=== PATIENT | female | born 1975 | race Caucasian/White ===

== ENCOUNTER 2019-12-02 10:24 | Outpatient (REF) | payer MEDICAID, SELFPAY ==
--- NOTE | 2019-12-02 10:00 | PAPFT_PTH ---
PATIENT: Bri Conte LOC: [facility] U#:[id number] AGE/SX: 44/F ROOM: RE12/02/[address]: GALE Solitario : 1975 BED: DIS: 12/02/2019 SPEC #: [id number] RECD: 12/02/19 13:08 STATUS: GABRIEL REQ #: [id number] DIPESH: 12/02/19 10:[address]: Daisy Johnson DEPT: [facility] Cytology RECD BY: Tammie Martinez ENTERED: 12/02/19 13:09 SP TYPE: PAPFT OTHR DR: Horacio Wilkins MD Tissues: 1 - CX/ENDOCX FOR PAP SMEARS Procedures: PAP THIN PREP/UVM Screening HPV DNA PROBE Comments: [id number]
[2019-12-06 14:23] LABS: Chlamydia Result Negative (Negative); GC Result Negative (Negative)
== END 2019-12-02 10:44 ==
LOC: LBN 10:24
PROVIDERS: PCP Family Medicine; Visit Provider Nurse Practitioner Family
DX: Z12.4 Encounter for screening for malignant neoplasm of cervix (principal); Z11.51 Encounter for screening for human papillomavirus (HPV); Z97.5 Presence of (intrauterine) contraceptive device
CPT/HCPCS: 87491; 87591; 88142; 87624

== ENCOUNTER 2019-12-22 01:07 | Outpatient (CLI) | payer MEDICAID, SELFPAY ==
--- NOTE | 2019-12-22 12:41 | DI.MAMMO_ITS ---
EXAM: MAMMO SCREENING CLINICAL HISTORY: screening TECHNIQUE: Mammograms were interpreted according to the usual protocol including computer analysis w [employer]ches CAD system, tomosynthesis and C-view imaging. COMPARISON: FINDINGS: The breasts are heterogeneously dense. No dominant mass or clumped microcalcification is identified in either breast. Current examination is compared with previous examinations including September 2015 and there has been no gross interval change in appearance comparison previous studies. There are scatte red microcalcifications seen in both breasts, unchanged. IMPRESSION: No specific evidence of malignancy at this time. Routine screening are suggested at yearly interval s in this age group according to the ACS ACR guidelines. BI-RADS Cat 1 - Negative Breast Density - Category C - Heterogeneously dense
== END 2019-12-22 01:27 ==
PROVIDERS: PCP Family Medicine; Visit Provider Nurse Practitioner Family
DX: Z12.31 Encounter for screening mammogram for malignant neoplasm of breast (principal); R92.2 Inconclusive mammogram
CPT/HCPCS: 77063; 77067

== ENCOUNTER 2020-02-01 01:53 | Outpatient (CLI) | payer MEDICAID, SELFPAY ==
[2020-02-01 09:02] LABS: Abs Immature Grans 0.01 10^3/uL (0.0-0.06); Absolute Basophil Count 0.05 10^3/uL (0.0-0.2); Absolute Eosinophil Count 0.39 10^3/uL (0.0-0.7); Absolute Lymphocyte Count 1.53 10^3/uL (1.2-3.4); Absolute Monocyte Count 0.35 10^3/uL (0.1-0.8); Absolute Neutrophil Count 3.08 10^3/uL (1.2-6.7); Basophils % 0.9; Eosinophils % 7.2; HCT 44.7 % (36.0-46.0); HGB 14.9 g/dL (11.2-15.7); Immature Grans % 0.2; Lymphocytes % 28.3; MCH 30.3 pg (27.0-33.0); MCHC 33.3 % (32.0-36.0); MCV 90.9 fL (80-95); MPV 9.6 fL (8.0-11.0); Monocytes % 6.5; Neutrophils % 56.9; Nucleated RBC 0 %; Platelet Count 315 10^3/uL (130-400); RBC 4.92 10^6/uL (3.93-5.22); RDW 11.7 % (11.7-14.6); RDW-SD 38.9 fL; WBC 5.41 10^3/uL (4.4-10.8)
[2020-02-01 10:14] LABS: ALT 17 U/L (14-59); AST 11 U/L (15-37); Albumin 4.3 g/dL (3.4-5.0); Alkaline Phosphatase 71 U/L (46-116); Anion Gap 6.3 mmol/L (3-11); BUN 8 mg/dL (7-18); Bilirubin, Total 0.3 mg/dL (0.2-1.0); CO2 28.7 mmol/L (21.0-32.0); CREATININE 0.62 mg/dL (0.55-1.02); Calcium 8.9 mg/dL (8.5-10.1); Calculated LDL 136 mg/dL (<100); Chloride 102 mmol/L (98-107); Cholesterol 202 mg/dL (<200); Glucose 96 mg/dL (74-106); HDL Cholesterol 47 mg/dL (40-60); Potassium 4.4 mmol/L (3.5-5.1); Sodium 137 mmol/L (136-145); TSH 2.33 uIU/mL (0.36-3.74); Total Protein 7.2 g/dL (6.4-8.2); Triglyceride 97 mg/dL (<150); Vitamin B12 568 pg/mL (193-986)
[2020-02-01 10:29] LABS: ESR 3 mm/hr (0-20)
[2020-02-17 10:42] LABS: ANA Interpretation Negative (Negative)
== END 2020-02-01 02:13 ==
PROVIDERS: PCP Family Medicine; Visit Provider Family Medicine
DX: R43.8 Other disturbances of smell and taste (principal); K21.00 Gastro-esophageal reflux disease with esophagitis, without bleeding; Z00.00 Encounter for general adult medical examination without abnormal findings; R20.8 Other disturbances of skin sensation; Z82.49 Family history of ischemic heart disease and other diseases of the circulatory system
CPT/HCPCS: 36415; 80053; 80061; 85652; 82607; 84443; 85025; 86038

== ENCOUNTER 2022-01-25 02:01 | Outpatient (CLI) | payer MEDICAID, SELFPAY ==
--- OUTSIDE RECORDS SUMMARY | 2022-01-25 02:03 | XMS_ITS | Clinical Summary ---
:1975 Author Organization [facility] [place] [address] Care Team Providers Name Role Phone Alyssa Mathew MD Primary Care Provider Allergies Active Allergy Reactions Severity Noted Date Comments Animal Dander 07/16/2021 Unclassified Drug 07/16/2021 Summer too lens Medications Medication Sig Dispensed Refills Start Date End Date Status cetirizine (ZyrTEC) 10 Take 10 mg by 0 Active mg Tablet mouth daily. pantoprazole EC Take 40 mg by 0 Active (Protonix) 40 mg Tablet, mouth daily. Delayed Release (E.C.) Immunizations Name Administration Dates Next Due Influenza Vaccine, Whole 12/27/2008 Social History Tobacco Use Types Packs/Day Years Used Date Never Smoker Smokeless Tobacco: Never Used Alcohol Use Standard Drinks/Week Comments Not Currently 0 (1 standard drink = 0.6 oz pure alcoho l) Sex Assigned at Date Recorded Not on file Last Filed Vital Signs Vital Sign Reading Time Taken Comments Blood Pressure 113/57 07/16/2021 3:40 PM EDT Pulse 67 07/16/2021 2:18 PM EDT Temperature 36.7 ??C (98.1 ??F) 07/16/2021 2:18 PM EDT Respiratory Rate 18 07/16/2021 3:40 PM EDT Oxygen Saturation 100% 07/16/2021 3:40 PM EDT Inhaled Oxygen Concentration - - Weight 53.1 kg (117 lb) 07/16/2021 2:18 PM EDT Height 157.5 cm (5' 2) 07/16/2021 2:18 PM EDT Body Mass Index 21.4 07/16/2021 2:18 PM EDT Plan of Treatment Health Maintenance Due Date Last Done Comments Covid-19 Vaccine (#1) 1975 HIV screen 1991 Hepatitis C Screening 1991 Tdap adult 1992 Tetanus vaccine 1992 HPV test 2003 PAP Smear 2003 Breast Cancer Share Decision Needed 2013 Colonoscopy 2018 Influenza (Flu) vaccine (1 of 1 - Influenza standard 12/06/2021 12/27/2008 series) Insurance Payer Benefit Plan / Subscriber ID Effective Dates Phone Addre ss Type [place] [id number] 2021-Kay [phone] [address] PRIMARY CARE t 7 [facility] [id number] Care Teams Manager Risk Relationship Specialty Start Date End Date Alyssa Mathew MD PCP - General Family Medicine 07/06/[address] [place] [address]
--- OUTSIDE RECORDS SUMMARY | 2022-01-25 02:03 | XMS_ITS | Encounter Summary ---
:1975 Author Organization [facility] [place] [address] Care Team Providers Name Role Phone Avelino ODELL MD, Ananda Bright Primary Care Provider [phone] Encounter Details Date Type Department Care Team Description 06/28/2021 Telephone Gastroenterology at [facility] [place] [address] Social History Tobacco Use Types Packs/Day Years Used Date Never Assessed Sex Assigned at Date Recorded Not on file documented as of this encounter Miscellaneous Notes Telephone Encounter - SidLeifcandi Romero - 06/28/2021 3:33 PM EDT Bri Conte [id number] Diagnosis/Indication: duodenal submucosal lesion 1. Have you ever had a/an Upper EUS before? No If yes, did you have any problems with the procedure? No What type of sedation was used: None 2. Do you take any blood thinners or have you been diagnosed with a bleeding disorder that increasesyour risk of bleeding with procedures? No 3. Do you have a Pacemaker or Defibrillator device? No 4. Are you a diabetic? No 5. Do you have any Allergies to Eggs, Latex or Medications? No 6. Do you take any Oral Iron Supplements (Including multi-vitamins)? No 7. Do you have a history of three or more abdominal surgeries? No 8. Have you had a problem with sedation or anesthesia? No 9. Do you use a c-pap machine or oxygen tank? Neither 10. Do you take prescription narcotic pain medications, including suboxone or methodone? No 11. Do you have a preference regarding the gender of your provider? No Preference 12. Is there any other information you would like to us to note for the provider and nursing team who will perform your case? No 13. Say to patient: You must have a responsible democrat who will drive you to your procedure, stay on campus for the entire duration of your procedure, and drive you home from your procedure? *Please Verify the height and weight, and adjust if height and/or weight have changed* There is no height or weight on file to calculate BMI. *Delete if not needed* Height: 5'2 Weight: 130 BMI: Age:46 y.o. documented in this encounter Plan of Treatment Not on filedocumented as of this encounter Visit Diagnoses Not on filedocumented in this encounter Care Teams Contract Administrator Relationship Specialty Start Date End Date Ananda You III, MD PCP - General 02/27/10 07/05/[address] [address] documented as of this encounter
--- OUTSIDE RECORDS SUMMARY | 2022-01-25 02:03 | XMS_ITS | Encounter Summary ---
:1975 Author Organization [facility] [address] Care Team Providers Name Role Phone Avelino ODELL MD, Ananda Bright Primary Care Provider [phone] Reason for Referral Consultation (Urgent) - Closed Specialty Diagnoses / Procedures Referred By Contact Refer red To Contact Gastroenterology Diagnoses Subepithelial lesion of duodenum EGD and EUS for duodenal submucosal lesion within 3-4 weeks with anesthesia with advanced endoscopist. Param Delgado, [facility] 4 t MD [facility] [address] [address] [place] [address] Referral ID Status Reason Start Date Expiration Date Visits V isits Requested Authorized [id number] Closed Consult, 06/25/2021 06/25/2022 1 1 Test & Treat Encounter Details Date Type Department Care Team Description 06/25/2021 Transcribe Orders eDH Incoming Nadeem Delgado ial lesion Referrals Param Mei MD of duodenum [phone] [address] Social History Tobacco Use Types Packs/Day Years Used Date Never Assessed Sex Assigned at Date Recorded Not on file documented as of this encounter Plan of Treatment Scheduled Referrals Name Type Priority Associated Diagnoses Order S chedule Referral to Outpatient Routine Subepithelial lesion Ordered : Gastroenterology Referral of duodenum 06/25/2021 documented as of this encounter Visit Diagnoses Diagnosis Subepithelial lesion of duodenum documented in this encounter Care Teams Laundry Press Operator Relationship Specialty Start Date End Date Ananda You III, MD PCP - General 02/27/10 07/05/[address] [place] [address] documented as of this encounter
--- OUTSIDE RECORDS SUMMARY | 2022-01-25 02:03 | XMS_ITS | Encounter Summary ---
:1975 Author Organization [facility] [place] [address] Care Team Providers Name Role Phone Alyssa Mathew MD Primary Care Provider Encounter Details Date Type Department Care Team Description 07/16/2021 Hospital Encounter Gastro[place]ology [place] [facility] Wood Almodovar, [facility] [place] [address] [facility] [phone] [place] [address] Social History Tobacco Use Types Packs/Day Years Used Date Never Smoker Smokeless Tobacco: Never Used Alcohol Use Standard Drinks/Week Comments Not Currently 0 (1 standard drink = 0.6 oz pure alcoho l) Sex Assigned at Date Recorded Not on file documented as of this encounter Last Filed Vital Signs Vital Sign Reading [...] Mass Index 21.4 07/16/2021 2:18 PM EDT documented in this encounter Discharge Instructions Discharge Quinn Galvan K, RN - 07/16/2021 3:14 PM EDT Upper GI Endoscopy: What to Expect at Home Your Recovery You will be able to go home after your doctor or nurse checks to make sure you are not having any problems. You may have to stay overnight if you had treatment during the test. You may have a sore throat for a day or two after the test. This care sheet gives you a general idea about what to expect after the test. How can you care for yourself at home? Activity Rest when you feel tired. You can do your normal activities when it feels okay to do so. Diet Follow your doctor's directions for eating. Unless your doctor has told you not to, drink plenty of fluids. This helps to replace the fluids that were lost during the prep. Do not drink alcohol. Medicines Your doctor will tell you if and when you can restart your medicines. He or she will also give you instructions about taking any new medicines. If you take blood thinners, such as warfarin (Coumadin), clopidogrel (Plavix), or aspirin, be sure to talk to your doctor. He or she will tell you if and when to start taking those medicines again. Make sure that you understand exactly what your doctor wants you to do. If polyps were removed or a biopsy was done during the test, your doctor may tell you not to take aspirin or other anti-inflammatory medicines for a few days. These include ibuprofen (Advil, Motrin) and naproxen (Aleve). If you have a sore throat the day after the procedure, use an qnls-vgm-kyxolyj spray to numb your throat. Sucking on throat lozenges and gargling with warm salt water may also help relieve your symptoms. Other instructions For your safety, do not drive or operate machinery until the medicine wears off and you can think clearly. Your doctor may tell you not to drive or operate machinery until the day after your test. Do not sign legal documents or make major decisions until the medicine wears off and you can think clearly. The anesthesia can make it hard for you to fully understand what you are agreeing to. Additional Information for Sedation Patients For patients who received sedation: You may have received medications before and/or during your procedure which effects your judgement and reaction time. Do not drive, operate machinery, drink alcoholic beverages or make important decisions for 24 hours. Be careful on stairs as you may be unsteady on your feet. You may eat a regular diet as tolerated. Do not smoke if you are alone. IV site: Slight redness or tenderness is normal, you can use a warm compress if you would like. If tenderness and/or redness increase or if foul drainage occurs, please contact your Doctor. Please call [phone] before 8pm Mon-Fri with problems, questions or concerns. If you call after 8pm or on weekends, call the Hospital at [phone] and ask to speak to the Linter Saw Sharpener department chairperson and the back digger operator will contact that person for you. When should you call for help? Call [phone] anytime you think you may need emergency care. For example, call if: You passed out (lost consciousness). You pass maroon or bloody stools. You have trouble breathing. Call your doctor now or seek immediate medical care if: You have pain that does not get better after you take pain medicine. You are sick to your stomach or cannot drink fluids. You have new or worse belly pain. You have blood in your stools. You have a fever. You cannot pass stools or gas. Watch closely for changes in your health, and be sure to contact your doctor if you have any problems. Where can you learn more? [facility] View your After Visit Summary and more online at [email or web address] If you would like to provide feedback about your hospital experience, please call the Office of Patient and Family Relations at . If you have received this After Visit Summary in error, please immediately return it in person to the department, or notify the [facility] Privacy Office by calling toll free at between the hours of 8AM and 5PM to arrange for our retrieval of the documents at no cost to you. Content Version: 12.2 ?? [id number] [email or web address]. Care instructions adapted under license by [facility]. If you have questions about a medical condition or this instruction, always ask your healthcare professional. [email or web address] disclaims any warranty or liability for your use of this information. documented in this encounter Medications at Time of Discharge Medication Sig Dispensed Refills Start Date End Date cetirizine (ZyrTEC) 10 mg Take 10 mg by mouth 0 Tablet daily. pantoprazole EC (Protonix) Take 40 mg by mouth 0 40 mg Tablet, Delayed daily. Release (E.C.) documented as of this encounter H&P Notes Wood Almodovar MD - 07/16/2021 3:57 PM EDT Procedure: eus Indication: subepithelial lesion History of Present Illness: Bri Conte is a 46 y.o. woman with a subepithelial lesion in the duodenum There is no problem list on file for this patient. Medications: Reviewed in EDH Allergies Allergen Reactions ??? Animal Dander ??? Other [Unclassified Drug] Summer pollens Social History/Family History: Reviewed in EDH. No changes Exam: Patient Vitals for the past 24 hrs: Temp Heart Rate From SP02 Pulse Resp BP SpO2 O2 Flow Rate (L/min) O2 Device 07/16/21 1418 36.7 ??C (98.1 ??F) -- 67 16 -- 97 % -- RA 07/16/21 1423 -- -- -- -- 117/73 -- -- -- 07/16/21 1513 -- 69 bpm -- 18 101/59 97 % 5 L/min Simple mask 07/16/21 1520 -- 74 bpm -- 18 112/75 98 % -- RA 07/16/21 1530 -- 66 bpm -- 18 101/60 96 % -- RA 07/16/21 1540 -- 53 bpm -- 18 113/57 100 % -- RA Axox3, nad Anicteric, MMM CTAB RRR, no m/r/g abd soft nt nd +bs Assessment and Plan: Proceed with EGD: EUS: ASA Grade: ASA 2 - Patient with mild systemic disease with no functional limitations Mallampati score:II (soft palate, uvula, fauces visible) Sedation plan: MAC Risks and benefits of the procedure were discussed with the patient. Consent has been signed. Wood Almodovar MD documented in this encounter Miscellaneous Notes Op Note - Wood Almodovar MD - 07/16/2021 2:44 PM EDT DH Operative Note Patient Name: Bri Conte : [id number] MR#: [id number] Case Date: 07/16/2021 Surgeon: Surgeon(s) and Role: * Wood Almodovar MD - Primary Procedure(s): EGD WITH BIOPSY (WRVU 2.49) UPPER EUS- ENDOSCOPIC ULTRASOUND Please see Provation report for details. documented in this encounter Plan of Treatment Not on filedocumented as of this encounter Procedures Procedure Name Priority Date/Time Associated Comments Diagnosis SURGICAL PATHOLOGY Routine 07/16/2021 3:09 PM Res ults for this REPORT EDT procedure are i n the results section. SPECIMEN TO Routine 07/16/2021 3:09 PM Results f or this PATHOLOGY EDT procedure are i n the results section. UPPER EUS- 07/16/2021 2:39 PM duodenal submucosal ENDOSCOPIC EDT lesion ULTRASOUND EGD WITH BIOPSY 07/16/2021 2:39 PM duodenal submucosal (WRVU 2.49) EDT lesion UPPER EUS-ENDOSCOPIC Routine 07/16/2021 2:31 PM R esults for this ULTRASOUND EDT procedure are i n the results section. documented in this encounter Results Surgical Pathology Report (07/16/2021 3:09 PM EDT) Component Value Ref Test Analysis Performed At [facility] Method Time Signature Surgical [id number] ? Location: 4T; [facility]; [facility] Pathology [place] Report The signing pathologist has (i) examined the relevant preparation(s) for the [facility] specimen(s) and (ii) rendered or confirmed the diagnosis(es) . HOSPITAL LABORATORY . ?Surgic al Pathology DIAGNOSIS A - Duodenal bx of lesion, biopsy: - ??Small intestinal mucosa, negative for diagnostic abnorma lity. Electronically signed by: ?Cory Cerrato MD Verified: ??07/18/2021 15:09 ??Pathologist Performed at: ??-[facility] Dept. of Pathology, [place], [place] SPECIMEN(S) SUBMITTED A - Duodenal bx of lesion, biopsy (1) CLINICAL INFORMATION Duodenal submucosal lesion SPECIMEN PROCESSING A - Labeled/Fixative: Duodenal BX of lesion, formalin. Quantity/Size: Two, averaging 0.5 cm. Tissue Description: Soft, alfonso-pink tissues. Sections/Processing: Submitted en toto ??in 1 cassette labeled A1. ??mnd Specimen (Source) Anatomical Collection Method Collection Time Re ceived Time Location / / Volume Laterality 07/16/2021 3:09 PM EDT Wood Almodovar MD PATHOLOGY/CYTOLOGY ORDERABLE S Performing Organization Address City/State/ZIP Code Phon e Number [address] Specimen to Pathology (07/16/2021 3:09 PM EDT) Specimen Anatomical Collection Method Collection Time Receive d Time (Source) Location / / Volume Laterality AP Specimen 07/16/2021 3:09 PM 3:09 EDT PM EDT Narrative [facility] - 07/16/2021 3:09 PM EDT Specimen requisition ordered. ??Separate Pathology report to follow Wood Almodovar MD PATHOLOGY/CYTOLOGY ORDERABLE S Performing Organization Address City/[facility]/[place] [address] UPPER EUS-ENDOSCOPIC ULTRASOUND (07/16/2021 2:31 PM EDT) Component Value Ref Test Analysis Performed At [facility] gist Range Method Time Signature UPPER [facility] ENDOSCOPIC Endoscopy ULTRASOUND _ Procedure Date: 07/16/2021 2:31 PM ? Patient Name: Bri Conte ? Date of : 1975 ? Age: 46 ? Order #: [id number] ? Instrument Name: [id number] ? Procedure: ? Upper EUS Indications: ? Duodenal deformity on ? endoscopy/Subepithelial tu mor vs. ? Extrinsic compression Providers: ? Guera Cross ? LORI England, Quinn Guzmán her Referring MD: ?Alyssa Mathew MD Medicines: ? Propofol per Anesthesia Complications: ? No immediate complications. Procedure: ? Pre-Anesthesia Assessment: ? - Prior to the procedure, a History ? and Physical was performed , and ? patient medications and al lergies ? were reviewed. The patient is ? competent. The risks and b enefits ? of the procedure and the s edation ? options and risks were dis cussed ? with the patient. All ques tions ? were answered and informed consent ? was obtained. Patient ? identification and propose d ? procedure were verified by the ? physician in the pre-proce dure ? area. Mental Status Examin ation: ? alert and oriented. Airway ? Examination: normal oropha ryngeal ? airway and neck mobility. ? Respiratory Examination: c lear to ? auscultation. CV Examinati on: ? normal. Prophylactic Antib iotics: ? The patient does not requi re ? prophylactic antibiotics. Prior ? Anticoagulants: The patien t has ? taken no anticoagulant or ? antiplatelet agents. ASA G rade ? Assessment: II - A patient with ? mild systemic disease. Aft er ? reviewing the risks and be nefits, ? the patient was deemed in ? satisfactory condition to undergo ? the procedure. The anesthe devon plan ? was to use monitored anest hesia ? care (MAC). Immediately pr ior to ? administration of medicati ons, the ? patient was re-assessed fo rextre ? adequacy to receive sedati ves. The ? heart rate, respiratory ra te, ? oxygen saturations, blood pressure, ? adequacy of pulmonary vent ilation, ? and response to care were monitored ? throughout the procedure. The ? physical status of the pat ient was ? re-assessed after the proc edure. ? The procedure, indications , ? benefits, risks and altern atives ? were explained to the rogelio ent. ? Specifically discussed wer e ? potential complications in cluding, ? but not limited to, ricardo perry, ? perforation, infection, mi ssing a ? cancer, and adverse medica tion ? reactions.The Endoscope wa s ? introduced through the yosi , and ? advanced to the third part of ? duodenum. The patient delmae rated the ? procedure well. The proced ure, ? indications, benefits, ris ks and ? alternatives were explaine d to the ? patient. Specifically disc ussed ? were potential complicatio ns ? including, but not limited to, ? bleeding, perforation, inf ection, ? missing a cancer, and adve rse ? medication reactions.The p atient ? tolerated the procedure we ll. ? Findings: ? ENDOSCOPIC FINDING: : ? The examined esophagus was normal. ? The entire examined stomach was normal. ? A single 10 mm subepithelial nodule was found in the ? third portion of the duodenum. Biopsies were taken ? with a cold forceps for histology after EUS was ? performed. After the first biopsy, clear liquid ? drained from the lesion which then completely ? deflated. ? ENDOSONOGRAPHIC FINDING: : ? An oval intramural (subepithelial) lesion was found ? in the third portion of the duodenum. The lesion was ? anechoic. Endosonographically, the lesion appeared to ? originate from within the submucosa (Layer 3). The ? lesion measured 13 mm (in maximum thickness). The ? lesion also measured 16 mm in diameter. ? Moderate Sedation: ? Not applicable - See Anesthesia documentation Impression: ?- Subepithelial lesion found in the ? duodenum with endosonograp hic ? appearance consistent with a simple ? cyst. Biopsied which resul kenan in ? clear fluid draining and t he lesion ? deflated Recommendation: ?- Discharge patient to home. ? - Resume previous diet. ? - Await path results. ? - Return to referring phys ician. ? Procedure Code(s): ? --- Professional --- ? 51334, Esophagogastroduode noscopy, ? flexible, transoral; with ? endoscopic ultrasound exam ination ? limited to the esophagus, stomach ? or duodenum, and adjacent structures ? 58137, Esophagogastroduode noscopy, ? flexible, transoral; with biopsy, ? single or multiple Diagnosis Code(s): ? --- Professional --- ? K31.89, Other diseases of stomach ? and duodenum ? --- Technical --- ? K31.89, Other diseases of stomach ? and duodenum CPT copyright 2020 [employer]. All rights reserved. The codes documented in this report are preliminary and upon ink grinder review may be revised to meet current compliance requirements. Attending Participation: ? I personally performed the entire procedure. ? Wood Almodovar, 07/16/2021 3:21:01 PM Number of Addenda: 0 Note Initiated On: 07/16/2021 2:31 PM Specimen (Source) Anatomical Collection Method Collection Time Re ceived Time Location / / Volume Laterality 07/16/2021 2:31 PM EDT Alyssa Mathew MD GENERAL SURGICAL ORDERABLES Performing Organization Address City/State/ZIP Code Phon e Number [employer] documented in this encounter Visit Diagnoses Not on filedocumented in this encounter Active and Recently Administered Medications Times are shown in EDT. Continuous Medication Order 07/14/2021 07/15/2021 07/16/2021 lactated ringers infusion (CANCELED) 1441 (New Bag - Provider: Luis Levi CRNA)1508 (Anesthesia Volume Adjustment - Provider: Luis Levi CRNA) 100 mL/hr, Intravenous, CONTINUOUS, Star ting on Fri07/16/21 at 1430, Until Fri07/16/21 at 1549, Endoscopy (Day of Procedure) documented in this encounter Care Teams Sales Agent Fire Insurance Relationship Specialty Start Date End Date Alyssa Mathew MD PCP - General Family Medicine 07/06/[address] [place] [phone] (work) documented as of this encounter
--- OUTSIDE RECORDS SUMMARY | 2022-01-25 02:03 | XMS_ITS | Encounter Summary ---
:1975 Author Organization [facility] [place] [address] Care Team Providers Name Role Phone Alyssa Mathew MD Primary Care Provider Encounter Details Date Type Department Care Team Description 07/16/2021 Anesthesia Event Gastroenterology at [facility] [place] [address] [address] [address] [phone] ANESTHESIOLOGY [place], [place] [address] Anesthesia Record Procedure Summary Procedure Name Responsible Anesthesia Start Anesthesia Stop Time Anesthesiologist Time EGD WITH BIOPSY Radha Allan MD 07/16/21 1439 07/16/21 1515 (WRVU 2.49) (N/A Trunk) Events Date Time Event Comment 07/16/2021 1427 1439 AN Verify 1439 Start 1439 An Start Data 1441 An Induction 1442 Anesthesia Ready 1510 an stop data 1514 Recovery or ICU Handoff Patient care was transferred to the destination unit staff after review of the patient's medica l history, current anesthetic/surgi asya status and plan, according to the Provider Handoff Checklist. 1515 Stop Name Total IV Lidocaine 60 mg Propofol 160 mg Propofol INF 293.38 mg Dexmedetomidine 12 mcg lactated ringers infusion 600 mL Agents Name O2 Air N2O O2 Auxiliary Flowmeter 1 Blood No blood administrations on file. Lines, Drains, and Airways No LDAs on file. documented in this encounter Social History Tobacco Use Types Packs/Day Years Used Date Never Smoker Smokeless Tobacco: Never Used Alcohol Use Standard Drinks/Week Comments Not Currently 0 (1 standard drink = 0.6 oz pure alcoho l) Sex Assigned at Date Recorded Not on file documented as of this encounter OR Notes Anesthesia Postprocedure Evaluation - Radha Allan MD - 07/16/2021 4:10 PM EDT Department of Anesthesiology Post-procedure Note Patient: Bri Conte Procedure Summary Date: 07/16/21 Room / Location: [facility] ENDO 3 / [facility] ENDOSCOPY Anesthesia Start: 1439 Anesthesia Stop: 1515 Procedures: EGD WITH BIOPSY (WRVU 2.49) (N/A Trunk) UPPER EUS- ENDOSCOPIC ULTRASOUND (N/A Trunk) Diagnosis: (duodenal submucosal lesion) Surgeons: Wood Almodovar MD Responsible Provider: Radha Allan MD Anesthesia Type: MAC ASA Status: 3 All Anesthesia Providers: Anesthesiologist: Radha Allan MD SALES SERVICE PROMOTER: Luis Levi CRNA Vitals Value Taken Time BP 113/57 07/16/21 1540 Temp 36.5 Pulse 76 Resp 18 07/16/21 1540 SpO2 99 % 07/16/21 1546 Pain Level 0 07/16/21 1513 Vitals shown include unvalidated device data. Patient Location: PACU/[facility] Level of Consciousness: Awake and Alert Pain Management: Satisfactory Analgesia PONV: None Cardiovascular Status: At Baseline and Hemodynamically Stable Respiratory Status: At Baseline and Room Air Postoperative Fluid Status: Intravascular EUvolemia Possible Anesthetic Complications: NONE apparent at time of evaluation Final Primary Anesthesia Type: MAC (The anesthetic type performed was the same as planned.) Comments: Radha Allan MD Anesthesia Preprocedure Evaluation - Radha Allan MD - 07/15/2021 9:55 PM EDT Pre-Anesthesia Evaluation for: Bri Conte a 46 y.o. female. Procedure(s): EGD, UPPER GI ENDOSCOPY UPPER EUS- ENDOSCOPIC ULTRASOUND There are no problems to display for this patient. No past medical history on file. No past surgical history on file. Social History Tobacco Use ??? Smoking status: Not on file ??? Smokeless tobacco: Not on file Substance Use Topics ??? Alcohol use: Not on file Social History Substance and Sexual Activity Drug Use Not on file Not on File Medications: MAR and/or home medications have been reviewed. Physical Exam: Preprocedure Vitals Current as of 07/15/21 2155 No BP, pulse, respiration, SpO2, or temperature recorded. Height: Weight: BMI: IBW: Airway Assessment: Mallampati: II TM distance: >3 FB Neck ROM: full Cardiovascular Assessment: system normal Pulmonary Assessment: pulmonary exam normal Dental Assessment: - normal exam Misc Assessment: Patient is wearing No contact(s). IV access: Peripheral line Last Filed Perioperative Cognitive Screening None Anesthesia Plan: ASA 3 MAC, with a(n) intravenous induction 46 year old female presenting for EGD and upper EUS. Allergy: Not on File BP Readings from Last 3 Encounters: No data found for BP NPO >4 METS No active GERD Plan is MAC with standard monitors. GA as backup. The patient was informed of the risks, benefits and alternatives of anesthesia. These risks included, but were not limited to, post-operative nausea and/or vomiting, pain, sore throat, dental/lip trauma, and other rare but serious complications such as major organ damage, awareness, severe allergic reactions, position-related nerve injuries, corneal abrasion/blindness and need blood transfusions. Allquestions were sought and answered. Consent was signed and placed in chart. Region - Other Informed Consent: Anesthetic plan and risks discussed with patient. Plan discussed with SALES SERVICE PROMOTER and attending. Anesthesia Screening documented in this encounter Plan of Treatment Not on filedocumented as of this encounter Visit Diagnoses Not on filedocumented in this encounter Administered Medications Inactive Administered Medications - up to 3 most recent administrations Medication Order MAR Action Action Date Dose Rate Site dexmedetomidine (Precedex) (4 Given 07/16/2021 2:41 PM EDT 12 mc g mcg/mL) bolus injection (Anesthsia) Intravenous, PRN, Starting on Fri07/16/21 at 1441, Until Fri07/16/21 at 1515, Anesthesia Intra-op, Routine lactated ringers infusion New Bag 07/16/2021 2:41 PM EDT 100 mL/hr, Intravenous, CONTINUOUS, Starting on Fri07/16/21 at 1430, Until Fri07/16/21 at 1549, Endoscopy (Day of Procedure) lidocaine (pf) (Xylocaine) (20 mg/mL) 2% Given 07/16/2021 2:41 P M EDT 60 mg injection syringe Intravenous, PRN, Starting on Fri07/16/21 at 1441, Until Fri07/16/21 at 1515, Anesthesia Intra-op, Routine propofoL (Diprivan) (10 Rate/Dose 07/16/2021 2:50 225 mcg/kg/min 71. 685 mg/mL) infusion Change PM EDT mL/hr Intravenous, CONTINUOUS PRN, Starting on Fri07/16/21 at 1441, Until Fri07/16/21 at 1515, Anesthesia Intra-op, Routine Rate/Dose Change 07/16/2021 2:45 PM EDT 175 mcg/kg/min 55.755 mL/hr New Bag 07/16/2021 2:41 PM EDT 150 mcg/kg/min 47.79 mL/hr propofoL (Diprivan) 10 mg/mL bolus injection Given 3:02 PM EDT 20 mg (Anesthesia) Intravenous, PRN, Starting on Fri07/16/21 at 1441, Until Fri07/16/21 at 1515, Anesthesia Intra-op Given 07/16/2021 2:48 PM EDT 40 mg Given 07/16/2021 2:44 PM EDT 40 mg documented in this encounter Care Teams Maintenance Pipefitter Relationship Specialty Start Date End Date Alyssa Mathew MD PCP - General Family Medicine 07/06/[address] [place] [phone] documented as of this encounter
--- OUTSIDE RECORDS SUMMARY | 2022-01-25 02:03 | XMS_ITS | Encounter Summary ---
:1975 Author Organization [facility] [address] Care Team Providers Name Role Phone Alyssa Mathew MD Primary Care Provider Encounter Details Date Type Department Care Team Description 07/16/2021 Surgery Gastroenterology at [facility] Wood Almodovar, [facility] Yoly bedolla MD [address]) [place] [address] [facility] [phone] [place], [place] [address] Social History Tobacco Use Types Packs/Day [...] documented in this encounter Discharge Instructions Discharge InstructionsQuinn Garcia RN - 07/16/2021 3:14 PM EDT Upper [...] the day after the procedure, use an yphc-soe-eomopie spray to numb your throat. Sucking on [...] occurs, please contact your Doctor. Please call [phone] before 8pm Mon-Fri with problems, questions or concerns. If you call after 8pm or on weekends, call the Hospital at [phone] and ask to speak to the Microbiology Manager authors motivational and the grid operator will contact that person for you. When should you call for help? Call [phone] anytime you think you may need emergency [...] any problems. Where can you learn more? [facility] View your After Visit Summary and more online at [email or web address] If you would like to provide feedback about your hospital experience, please call the Office of Patient and Family Relations at . If you have received this After Visit Summary in error, please immediately return it in person to the department, or notify the [facility] Privacy Office by calling toll free at between the hours of 8AM and 5PM to arrange for our retrieval of the documents at no cost to you. Content Version: 12.2 ?? [phone] [employer]. Care instructions adapted under license by [facility]. If you have questions about a medical condition or this instruction, always ask your healthcare professional. [employer] disclaims any warranty or liability for your [...] Operative Note Patient Name: Bri Conte : [id number] MR#: [id number] Case Date: 07/16/2021 Surgeon: Surgeon(s) and Role: [...] Component Value Ref Test Analysis Performed At [facility] Method Time Signature Surgical [id number] ? Location: 4T; [facility]; [facility] Report The signing pathologist has (i) examined the relevant preparation(s) for the [facility] specimen(s) and (ii) rendered or confirmed the diagnosis(es) . HOSPITAL LABORATORY . ?Surgic al Pathology DIAGNOSIS A - Duodenal bx of lesion, biopsy: - ??Small intestinal mucosa, negative for diagnostic abnorma lity. Electronically signed by: ?Cory Cerrato MD Verified: ??07/18/2021 15:09 ??Pathologist Performed at: ??-[facility] Dept. of Pathology, [place], [place] SPECIMEN(S) SUBMITTED A - Duodenal bx [...] MD PATHOLOGY/CYTOLOGY ORDERABLE S Performing Organization Address City/[facility]/[place] [address] Specimen to Pathology (07/16/2021 3:09 PM EDT) Specimen Anatomical Collection Method Collection Time Receive d Time (Source) Location / / Volume Laterality AP Specimen 07/16/2021 3:09 PM 2 3:09 EDT PM EDT Narrative [facility] - 07/16/2021 3:09 PM EDT Specimen requisition ordered. ??Separate Pathology report to follow Wood Almodovar MD PATHOLOGY/CYTOLOGY ORDERABLE S Performing Organization Address City/[facility]/[place] [address] UPPER EUS-ENDOSCOPIC ULTRASOUND (07/16/2021 2:31 PM EDT) Component Value Ref Test Analysis Performed At [facility] gist Range Method Time Signature UPPER [facility] PROVATION ENDOSCOPIC Endoscopy ULTRASOUND _ Procedure Date: 07/16/2021 2:31 PM ? Patient Name: Bri Conte ? Date of : 1975 ? Age: 46 ? Order #: [id number] ? Instrument Name: [id number] ? Procedure: ? Upper EUS Indications: ? [...] to the rogelio ent. ? Specifically discussed argenis camargo ? potential complications in cluding, ? but not limited to, ricardo perry, ? perforation, infection, mi ssing a ? cancer, and adverse medica tion ? reactions.The Endoscope wa s ? introduced through the yosi , and ? advanced to the third part of ? duodenum. The patient tole rated the ? procedure well. The proced [...] Procedure Code(s): ? --- Professional --- ? 98656, Esophagogastroduode noscopy, ? flexible, transoral; with ? endoscopic ultrasound exam ination ? limited to the esophagus, stomach ? or duodenum, and adjacent structures ? 03438, Esophagogastroduode noscopy, ? flexible, transoral; with biopsy, ? single or multiple Diagnosis Code(s): ? --- Professional --- ? K31.89, Other diseases of stomach ? and duodenum ? --- Technical --- ? K31.89, Other diseases of stomach ? and duodenum CPT copyright 2020 [employer]. All rights reserved. The codes documented in this report are preliminary and upon alliances consultant review may be revised to meet current [...] Procedure) documented in this encounter Care Teams Hematology Oncology Consultant Relationship Specialty Start Date End Date Alyssa Mathew MD PCP - General Family Medicine 07/06/[address] [place] [phone] documented as of this encounter
--- OUTSIDE RECORDS SUMMARY | 2022-01-25 02:04 | XMS_ITS | Encounter Summary ---
:1975 Author Organization [facility] Address [address] [place] [address] Care Team Providers Name Role Phone Unavailable Primary Care Provider Unavailable Encounter Details Date Type Department Care Team Description 07/23/2002 Results Only [facility] - Christina Lara CNM [facility] [address] [place] [address] Social History Tobacco Use Types Packs/Day Years Used Date Never Assessed Sex Assigned at Date Recorded Not on file documented as of this encounter Plan of Treatment Not on filedocumented as of this encounter Procedures Procedure Name Priority Date/Time Associated Diagnosis Comme nts CYTOPATHOLOGY Routine 07/23/2002 0:00 EDT Results for this procedure are i n the results section . documented in this encounter Results CYTOPATHOLOGY (07/23/2002 0:00 EDT) Pathology Report: CYTOPATHOLOGY REPORT [facility] Reports generated via electronic interface contain maryan ginal data; however they are lacking the format of the original re port. Caution should be taken when reading/interpreting unfo rmatted reports. Name: ? BRI CONTE ? Accession #: ? [id number] : ? 1975 (Age: 27) ??F ?Collect Date: ? 07/06 Location: ? [facility] ? Receive Date : ? 07/26/2002 Provider: ?CHRISTINA GUZMÁN CNM Copy to: ? Specimen/Source: ?ThinPrep Pap Test, Cervix/ Endocervix Last Menstrual Period: ? 08/30/02 Menstrual/ Status: ? Post Treatment History: ? Colposcopy: 1991 ? SPECIMEN ADEQUACY ? Satisfactory for Evaluation - transformation zone component present GENERAL CATEGORIZATION ? Negative for Intraepithelial Lesion or Malignan cy ? Document reviewed and electronically signed by: ? GEMA Penn(ASCP) ? Report Date: ??07/28/2002 13:22 End of Report Specimen Performing Organization Address City/State/ZIP Code Phon e Number [facility] [address] [place] [phone] SERVICES [facility] [address] [place] [address] documented in this encounter Visit Diagnoses Not on filedocumented in this encounter
--- OUTSIDE RECORDS SUMMARY | 2022-01-25 02:04 | XMS_ITS | Encounter Summary ---
:1975 Author Organization [facility] Address [address] [place] [address] Care Team Providers Name Role Phone Ananda You MD Primary Care Provider Unavailable Encounter Details Date Type Department Care Team Description 12/02/2019 Lab Requisition [facility] Outr Resulting Lab, Pathology & Laboratory Provider [facility] [address] [place] [address] Social History Tobacco Use Types Packs/Day Years Used Date Never Assessed Sex Assigned at Date Recorded Not on file documented as of this encounter Plan of Treatment Not on filedocumented as of this encounter Procedures Procedure Name Priority Date/Time Associated Comments Diagnosis CHLAMYDIA/N. Routine 12/02/2019 10:00 Results for this GONORRHOEAE AMPLIFIED EDT proced ure are in RNA the results section. documented in this encounter Results CHLAMYDIA/N. GONORRHOEAE AMPLIFIED RNA (12/02/2019 10:00 EDT) Pathologist Sig nature Gonococcus Result Negative Negative [facility] Chlamydia Result Negative Negative [facility] Specimen Swab - Entire endocervix (body structure ) Performing Organization Address City/State/ZIP Code Phon e Number [facility] [address] [place] [address] SERVICES documented in this encounter Visit Diagnoses Not on filedocumented in this encounter Care Teams Social Media Developer Relationship Specialty Start Date End Date Ananda You MD PCP - General 02/14/15 documented as of this encounter
--- OUTSIDE RECORDS SUMMARY | 2022-01-25 02:04 | XMS_ITS | Encounter Summary ---
:1975 Author Organization [facility] Address [address] [place] [address] Care Team Providers Name Role Phone Unavailable Primary Care Provider Unavailable Encounter Details Date Type Department Care Team Description 09/04/2007 Results Only [facility] - Daisy Ozuna od, FULL TIME conversion [address] [place] [phone] (Wo rk) Social History Tobacco Use Types Packs/Day Years Used Date Never Assessed Sex Assigned at Date Recorded Not on file documented as of this encounter Plan of Treatment Not on filedocumented as of this encounter Procedures Procedure Name Priority Date/Time Associated Comments Diagnosis HPV DETECTION, HIGH Routine 09/04/2007 10:41 Resu lts for this RISK TYPES EDT procedure are i n the results section. CYTOPATHOLOGY Routine 09/04/2007 0:00 Results for this EDT procedure are i n the results section. documented in this encounter Results HUMAN PAPILLOMA VIRUS DNA TEST (09/04/2007 10:41 EDT) Specimen Description Cervix, ThinPrep [facility] vial Result Negative for HPV [facility] types 16, 18, 31, 33, 35, 39, 45, 51, 52, 56, 58, 59, and 68. Report Status Final [facility] [id number] Specimen Performing Organization Address City/State/ZIP Code Phon e Number [facility] [address] [place] [address] SERVICES [facility] [address] [place] [address] CYTOPATHOLOGY (09/04/2007 0:00 EDT) Pathology Report: CYTOPATHOLOGY REPORT [facility] Reports generated via electronic interface contain maryan ginal data; however they are lacking the format of the original re port. Caution should be taken when reading/interpreting unfo rmatted reports. Name: ? BRI CONTE ? Accession #: ? [id number] : ? 1975 (Age: 32) ??F ?Collect Date: ? 08/07 Location: ? [facility] ? Receive Date : ? 09/04/2007 Provider: ?DAISY LAWTON FULL TIME Copy to: ? Specimen/Source: ? ThinPrep Pap Test, Cervix/Endocervix, processed on myaNUMBER ThinPrep Imaging System, with manual evaluation Last Menstrual Period: ? 08/25/07 Hormonal/Contraceptive Status: ? Yes: OE patch Other: ? HPVDX - HPV testing requested regardless of diag nosis on current ThinPrep Pap test. ? SPECIMEN ADEQUACY ? Satisfactory for Evaluation - transformation zone component present GENERAL CATEGORIZATION ? Negative for Intraepithelial Lesion or Malignan cy ? Document reviewed and electronically signed by: ? Christina Craig, SCT(ASCP) ? Report Date: ??09/09/2007 08:32 End of Report Specimen Performing Organization Address City/State/ZIP Code Phon e Number [facility] [address] [place] [address] SERVICES [facility] [address] [place] [address] documented in this encounter Visit Diagnoses Not on filedocumented in this encounter
--- OUTSIDE RECORDS SUMMARY | 2022-01-25 02:04 | XMS_ITS | Encounter Summary ---
:1975 Author Organization [facility] Address [address] [place] [address] Care Team Providers Name Role Phone Unavailable Primary Care Provider Unavailable Encounter Details Date Type Department Care Team Description 09/24/2013 Results Only [facility] Filippo Johnson, MUSIC MINISTRIES DIRECTOR Laboratory Services - [address] [address] [place] [address] [phone] Social History Tobacco Use Types Packs/Day Years Used Date Never Assessed Sex Assigned at Date Recorded Not on file documented as of this encounter Plan of Treatment Not on filedocumented as of this encounter Procedures Procedure Name Priority Date/Time Associated Diagnosis Comme nts PAP TEST- RESULT Routine 09/24/2013 0:00 EDT Resu lts for this ONLY procedure are i n the results section. documented in this encounter Results PAP TEST- RESULT ONLY (09/24/2013 0:00 EDT) Pathology Report: CYTOPATHOLOGY REPORT [facility] Reports generated via electronic interface contain maryan ginal data; however they are lacking the format of the original re port. Caution should be taken when reading/interpreting unfo rmatted reports. Name: ? BRI CONTE ? Accession #: ? [id number] ? : ? 1975 (Age: 38) ??F ?Collect Da te: ? 09/24/2013 ? Location: ? [facility] ? Receive Date: ? 014 ? Provider: GT JOHNSON MUSIC MINISTRIES DIRECTOR Copy to: JOEL VERDUZCO MD ? Final Report SPECIMEN ADEQUACY ? Satisfactory for Evaluation - transformation zone component present - scant squamous epithelial component secondary to exc essive blood GENERAL CATEGORIZATION ? Negative for Intraepithelial Lesion or Malignan cy ?? Hormonal/Contraceptive status: Intrauterine device: Mi sami Specimen/Source: ??Pap Test, Cervix/Endocervix, ThinPr ep Imaging System with manual evaluation Document reviewed and electronically signed by: ? Neil Childs, CT(ASCP) ? Report ??Date: 10/07/2013 09:25 HPV with Pap Test ? Date Ordered: ? 10/07/2013 ? Status: ?? Signed Out ?Date Complete: ? 10/12/2013 ? By: ??S ystem Interface ? Date Reported: ? 10/12/2013 ? Interpretation RESULT: Negative for HPV. No E6 or E7 mRNA is detected from HPV types 16,18,31,3 3,35, 39,45,51,52,56,58,59,66, and 68 by dockworker media kenan amplification. Comments Document reviewed and electronically signed by: ? System Interface ? Report date: 10/12/2013 By the signature above, the attending physician certif ies that he/she has personally conducted a gross and/or microscopic examin ation of the described specimens and rendered or confirmed the above diagnosi s. End of Report Specimen Performing Organization Address City/State/ZIP Code Phon e Number [facility] [address] [place] [address] SERVICES [facility] [address] [place] [address] documented in this encounter Visit Diagnoses Not on filedocumented in this encounter
--- OUTSIDE RECORDS SUMMARY | 2022-01-25 02:04 | XMS_ITS | Encounter Summary ---
:1975 Author Organization [facility] Address [address] [place] [address] Care Team Providers Name Role Phone Unavailable Primary Care Provider Unavailable Encounter Details Date Type Department Care Team Description 08/05/2003 Results Only [facility] - Daisy Ozuna od, COMMODITY DIRECTOR [address] [place] [phone] (Wo rk) Social History Tobacco Use Types Packs/Day Years Used Date Never Assessed Sex Assigned at Date Recorded Not on file documented as of this encounter Plan of Treatment Not on filedocumented as of this encounter Procedures Procedure Name Priority Date/Time Associated Diagnosis Comme nts CYTOPATHOLOGY Routine 08/05/2003 0:00 EDT Results for this procedure are i n the results section . documented in this encounter Results CYTOPATHOLOGY (08/05/2003 0:00 EDT) Pathology Report: CYTOPATHOLOGY REPORT [facility] Reports generated via electronic interface contain maryan ginal data; however they are lacking the format of the original re port. Caution should be taken when reading/interpreting unfo rmatted reports. Name: ? BRI CONTE ? Accession #: ? [id number] : ? 1975 (Age: 28) ??F ?Collect Date: ? 07/08 Location: ? [facility] ? Receive Date : ? 08/09/2003 Provider: ?DAISY JERED COMMODITY DIRECTOR Copy to: ? Specimen/Source: ?ThinPrep Pap Test, Cervix/ Endocervix Last Menstrual Period: ? 07/20/2003 Treatment History: ? Colposcopy: 1991 Other: ? HPVA - HPV testing requested if ASC-US on the current ThinPrep Pap test. ? SPECIMEN ADEQUACY ? Satisfactory for Evaluation - transformation zone component present GENERAL CATEGORIZATION ? Negative for Intraepithelial Lesion or Malignan cy ? Document reviewed and electronically signed by: ? GEMA Marin(ASCP) ? Report Date: ??08/15/2003 07:06 End of Report Specimen Performing Organization Address City/State/ZIP Code Phon e Number [facility] [address] [place] [address] SERVICES [facility] [address] [place] [address] documented in this encounter Visit Diagnoses Not on filedocumented in this encounter
--- OUTSIDE RECORDS SUMMARY | 2022-01-25 02:04 | XMS_ITS | Encounter Summary ---
:1975 Author Organization [facility] Address [address] [place] [id number] Care Team Providers Name Role Phone Unavailable Primary Care Provider Unavailable Encounter Details Date Type Department Care Team Description 05/30/2000 Results Only [facility] - Daisy Ozuna od, ICE PULLER [address] [place] [phone] (Wo rk) Social History Tobacco Use Types Packs/Day Years Used Date Never Assessed Sex Assigned at Date Recorded Not on file documented as of this encounter Plan of Treatment Not on filedocumented as of this encounter Procedures Procedure Name Priority Date/Time Associated Diagnosis Comme nts CYTOPATHOLOGY Routine 05/30/2000 0:00 EST Results for this procedure are i n the results section . documented in this encounter Results CYTOPATHOLOGY (05/30/2000 0:00 EST) Pathology Report: CYTOPATHOLOGY REPORT [facility] Reports generated via electronic interface contain maryan ginal data; however they are lacking the format of the original re port. Caution should be taken when reading/interpreting unfo rmatted reports. Name: ? BRI CONTE ? Accession #: ? [id number] : ? 1975 (Age: 25) ??F ?Collect Date: ? 05/09 Location: ? [facility] ? Receive Date : ? 06/03/2000 Provider: ?DAISY LAWTON ICE PULLER Copy to: ? Specimen/Source: ?ThinPrep Pap Test, Cervix/ Endocervix Last Menstrual Period: ? 05/12/00 Hormonal/Contraceptive Status: ? Control Pills Previous Gynecologic Pathology: ? Yes Treatment History: ? Colposcopy: 1991 Other: ? Additional clinical information: Paps 1998/1999 wnl. ? SPECIMEN ADEQUACY ? Satisfactory for evaluation. GENERAL CATEGORIZATION ? Within Normal Limits ? Document reviewed and electronically signed by: ? GEMA Penn(ASCP) ? Report Date: ??06/04/2000 09:13 End of Report Specimen Performing Organization Address City/State/ZIP Code Phon e Number [facility] [address] [place] [address] SERVICES [facility] [address] [place] [address] documented in this encounter Visit Diagnoses Not on filedocumented in this encounter
--- OUTSIDE RECORDS SUMMARY | 2022-01-25 02:04 | XMS_ITS | Clinical Summary ---
:1975 Author Organization [facility] Address [address] [place] [address] Care Team Providers Name Role Phone Ananda You MD Primary Care Provider Unavailable Social History Tobacco Use Types Packs/Day Years Used Date Never Assessed Sex Assigned at Date Recorded Not on file Plan of Treatment Health Maintenance Due Date Last Done Comments Hepatitis C Screen 1975 COVID-19 Vaccine (#1) 1975 Insurance Payer Benefit Plan / Subscriber ID Effective Phone Address T ype Group Dates [place] [id number] 2021-Prese [address] Medicaid [place] [facility] [id number] Bri Conte Personal/Family Self 1975 [address] [place] [id number] Bri Conte Personal/Family Self 1975 [address] ([address]) [place] [id number] Bri Conte Personal/Family Self 1975 [address] ([address]) [place] [id number] Bri Conte Personal/Family Self 1975 [address] (Home) [place] [id number] Bri Conte Personal/Family Self 1975 [address] ([address] [place] [id number] Bri Conte Personal/Family Self 1975 [address] ([place]) [place] [id number] Bri Conte Personal/Family Self 1975 [address] ([place]) [place] [address] Care Teams Liaison Planner Relationship Specialty Start Date End Date Ananda You MD PCP - General 02/14/15
--- OUTSIDE RECORDS SUMMARY | 2022-01-25 02:04 | XMS_ITS | Encounter Summary ---
:1975 Author Organization [facility] Address [address] [place] [address] Care Team Providers Name Role Phone Unavailable Primary Care Provider Unavailable Encounter Details Date Type Department Care Team Description 08/28/2006 Results Only [facility] - Daisy Ozuan od, PHYSICAL OPTICS TEACHER [address] [place] [phone] (Wo rk) Social History Tobacco Use Types Packs/Day Years Used Date Never Assessed Sex Assigned at Date Recorded Not on file documented as of this encounter Plan of Treatment Not on filedocumented as of this encounter Procedures Procedure Name Priority Date/Time Associated Diagnosis Comme nts CYTOPATHOLOGY Routine 08/28/2006 0:00 EDT Results for this procedure are i n the results section . documented in this encounter Results CYTOPATHOLOGY (08/28/2006 0:00 EDT) Pathology Report: CYTOPATHOLOGY REPORT [facility] Reports generated via electronic interface contain maryan ginal data; however they are lacking the format of the original re port. Caution should be taken when reading/interpreting unfo rmatted reports. Name: ? BRI CONTE ? Accession #: ? [id number] : ? 1975 (Age: 31) ??F ?Collect Date: ? 08/06 Location: ? [facility] ? Receive Date : ? 08/29/2006 Provider: ?DAISY LAWTON PHYSICAL OPTICS TEACHER Copy to: ? Specimen/Source: ? ThinPrep Pap Test, Cervix/Endocervix, processed on [employer] ThinPrep Imaging System, with manual evaluation Last Menstrual Period: ? 08/20/06 Hormonal/Contraceptive Status: ? Yes: Orthoevra patch Treatment History: ? Colposcopy: 1991, paps neg. since Other: ? HPVA - HPV testing requested if ASC-US on the current ThinPrep Pap test. ? SPECIMEN ADEQUACY ? Satisfactory for Evaluation - transformation zone component present GENERAL CATEGORIZATION ? Negative for Intraepithelial Lesion or Malignan cy INTERPRETATION ? Reactive cellular lisandra nges associated with inflammation present (includes repair). ? Document reviewed and electronically signed by: ? RYANN LAUREANO MD [facility] ? Report Date: ??09/05/2006 09:31 End of Report Specimen Performing Organization Address City/State/ZIP Code Phon e Number [facility] [address] [place] [address] SERVICES [facility] [address] [place] [address] documented in this encounter Visit Diagnoses Not on filedocumented in this encounter
--- OUTSIDE RECORDS SUMMARY | 2022-01-25 02:04 | XMS_ITS | Encounter Summary ---
:1975 Author Organization [facility] Address [address] [place] [address] Care Team Providers Name Role Phone Ananda You MD Primary Care Provider Unavailable Encounter Details Date Type Department Care Team Description 06/07/2021 Lab Requisition [facility] Param Delgado Gastro- esophageal reflux disease without esophagitis; Pathology & MD Ga Epigastric pain; Laboratory Medicine [address] [facility] zed abdominal pain; - [facility] Change in bowel habit [address] [place] [phone] Social History Tobacco Use Types Packs/Day Years Used Date Never Assessed Sex Assigned at Date Recorded Not on file documented as of this encounter Plan of Treatment Not on filedocumented as of this encounter Procedures Procedure Name Priority Date/Time Associated Diagnosis Comme nts SURGICAL PATHOLOGY Today 06/07/2021 12:07 Gastro-esophageal Results for this EST reflux disease procedure are in without esophagi tis the results Epigastric pain section. Generalized abdominal pain Change in bowel habit documented in this encounter Results SURGICAL PATHOLOGY (06/07/2021 12:07 EST) Note to Patient The following [facility] pathology results CENTER have been interpreted LABORATORY by your pathologist SERVICES and may be available to you before your health provider has had the opportunity to review them. Please allow time for your provider to receive these results and explore management options, if applicable. Final Diagnosis A. DUODENUM, BIOPSY: [facility] - No significant pathologic abnormality C ENTER LABORATORY B. DUODENUM, BULB, BIOPSY: [facility] - No significant pathologic abnormality C. STOMACH, ANTRUM, BIOPSY: - Chemical (reactive) gastropathy D. STOMACH, BODY, BIOPSY: - No significant pathologic abnormality Attestation By the signature [facility] Electronica lly below, the attending CENTER signed by Dean, physician certifies LABORATORY Norma Weston MD on that they have 1) SERVICES 06/11/2021 a t 1159 personally conducted a gross and/or microscopic examination of the described specimen(s), and/or personally interpreted the results of laboratory testing of the described specimen(s), and 2) personally rendered or confirmed the above diagnosis. Clinical History GERD, dyspepsia, abdominal p ain, hiatal hernia, duodenal nodule; clinical diagnosis code: K21.9, R10.13, R10.84, R19.4 [facility] SERVICES Gross Description A. [facility] Received in formalin mary d with proper patient identification (initials W, T) and A. Duodenum are 5 alfonso-brown tissues (0.2 x 0.1 x 0.1 cm to 0.4 x 0.2 x 0.1 cm). Entirely submitted in A1. CENTER LABORATORY B. SERVICES Received in formalin mary d with proper patient identification (initials W, T) and B. Duodenal bulb are 3 alfonso-brown tissues (0.3 x 0.2 x 0.1 cm to 0.4 x 0.3 x 0.1 cm). Entirely submitted in B1. C. Received in formalin mary d with proper patient identification (initials W, T) and C. Antrum are 2 alfonso-brown tissues (0.2 x 0.2 x 0.1 cm to 0.4 x 0.2 x 0.1 cm). Entirely submitted in C1. D. Received in formalin mary d with proper patient identification (initials W, T) and D. Gastric body are 2 alfonso-brown tissues (0.2 x 0.2 x 0.2 cm and 0 3 x 0.2 x 0.2 cm). Entirely submitted in D1. MIYA GARCIA(ASCP) 06/08/2021 8:10 Performing Lab [facility] SERVICES Scanned Images [facility] SERVICES Specimen Tissue - Entire stomach (body structure) Tissue specimen (specimen) - Entire smal l intestine (body structure) Tissue specimen (specimen) - Entire stom ach (body structure) Tissue specimen (specimen) - Entire stom ach (body structure) Performing Organization Address City/State/ZIP Code Phon e Number [facility] [address] [place] [phone] SERVICES documented in this encounter Visit Diagnoses Diagnosis Gastro-esophageal reflux disease without esophagitis Esophageal reflux Epigastric pain Abdominal pain, epigastric Generalized abdominal pain Abdominal pain, generalized Change in bowel habit documented in this encounter Care Teams Hospital Receiving Clerk Relationship Specialty Start Date End Date Ananda You MD PCP - General 02/14/15 documented as of this encounter
--- OUTSIDE RECORDS SUMMARY | 2022-01-25 02:04 | XMS_ITS | Encounter Summary ---
:1975 Author Organization [facility] Address [address] [place] [address] Care Team Providers Name Role Phone Unavailable Primary Care Provider Unavailable Encounter Details Date Type Department Care Team Description 05/10/1999 Results Only [facility] - Christina Lara CNM [facility] [address] [place] [phone] Social History Tobacco Use Types Packs/Day Years Used Date Never Assessed Sex Assigned at Date Recorded Not on file documented as of this encounter Plan of Treatment Not on filedocumented as of this encounter Procedures Procedure Name Priority Date/Time Associated Diagnosis Comme nts CYTOPATHOLOGY Routine 05/10/1999 13:25 EST Result s for this procedure are i n the results section . documented in this encounter Results CYTOPATHOLOGY (05/10/1999 13:25 EST) Pathology Report: CYTOPATHOLOGY REPORT [facility] Reports generated via electronic interface contain maryan ginal data; however they are lacking the format of the original re port. Caution should be taken when reading/interpreting unfo rmatted reports. Name: ? BRI CONTE ? Accession #: ? [id number] : ? 1975 (Age: 24) ??F ?Collect Date: ? 06/1999 Location: ?Receive Date: ? 05/10/1999 Provider: ?CHRISTINA GUZMÁN CNM Copy to: ?CHRISTINA GUZMÁN CNM ? Specimen/Source: ?Construction Secretary ThinPrep Last Menstrual Period: ? GYNECOLOGIC ??CYTOPATHOLOG Y ??REPORT Name: BRI CONTE ? [facility] : 1975 ?? 24Y F ?Client ID: [id number] SS#: [id number] ? Ac cession #: [id number] Clinician: CHRISTINA GUZMÁN CNM ?? Location: [facility] ??Copy to: ?? Specimen: ?Construction Secretary ThinPrep ? Source: Cervix/Endocervix ?Collected: 05/08/99 ? Received: 05/10/1999 ?LMP: 06/08/98 ? Hormone Therapy: No ? : No ? Radiation Therapy: No ?? Post : Yes ? Chemotherapy: No ?IUD: No ? Prev Abnormal Pap: Yes ?? Clinical Hx: Pat. states 8 yrs. ago had an abnormal pa p. ?(Blank lau indicate information not provided on requisition) SPECIMEN ADEQUACY: ? Satisfactory For Evaluation ?? GENERAL CATEGORIZATION: ? WITHIN NORMAL LIMITS ? Reviewed And Electronically Signed By: ? Bart Caro , CT(ASCP) ? Report Date : ?? 05/10/1999 [employer] Archived Tests - Final Diagnosis Text Field: Clinical History : ;Pat. states 8 yrs. ago had an abno rmal pap. ? Document reviewed and electronically signed by: ? Conversion ? Report Date: ??05/10/1999 00:00 End of Report Specimen Performing Organization Address City/State/ZIP Code Phon e Number [facility] [address] [place] [address] SERVICES [facility] [address] [place] [address] documented in this encounter Visit Diagnoses Not on filedocumented in this encounter
--- OUTSIDE RECORDS SUMMARY | 2022-01-25 02:04 | XMS_ITS | Encounter Summary ---
:1975 Author Organization [facility] Address [address] [place] [address] Care Team Providers Name Role Phone Ananda You MD Primary Care Provider Unavailable Encounter Details Date Type Department Care Team Description 02/01/2020 Lab Requisition [facility] Outr Resulting Lab, Pathology & Laboratory Provider [facility] [address] [place] [phone] Social History Tobacco Use Types Packs/Day Years Used Date Never Assessed Sex Assigned at Date Recorded Not on file documented as of this encounter Plan of Treatment Not on filedocumented as of this encounter Procedures Procedure Name Priority Date/Time Associated Diagnosis Comme nts ANTI NUCLEAR AB Routine 02/01/2020 8:44 EDT Resul ts for this (AFSHIN), IFA procedure are i n the results section. documented in this encounter Results ANTI NUCLEAR AB (AFSHIN), IFA (02/01/2020 8:44 EDT) AFSHIN Interpretation NegativeComment: Negative [facility] No titer LABORATORY SERVICES performed, AFSHIN Screen is negative Specimen Blood - Venous blood (substance) Narrative [facility] LABORATORY SERVICES - 03/01/2020 12:16 EST Results were obtained with the [employer] NOV A Lite HEp-2 AFSHIN Kit by indirect immunofluorescence. Performing Organization Address City/State/ZIP Code Phon e Number [facility] [address] [place] [address] SERVICES documented in this encounter Visit Diagnoses Not on filedocumented in this encounter Care Teams Junior Software Developer Relationship Specialty Start Date End Date Ananda You MD PCP - General 02/14/15 documented as of this encounter
--- OUTSIDE RECORDS SUMMARY | 2022-01-25 02:04 | XMS_ITS | Encounter Summary ---
:1975 Author Organization [facility] Address [address] [place] [address] Care Team Providers Name Role Phone Unavailable Primary Care Provider Unavailable Encounter Details Date Type Department Care Team Description 08/07/2004 Results Only [facility] - Daisy Ozuna od, SUPERVISOR PASTE MIXING [address] [place] [phone] (Wo rk) Social History Tobacco Use Types Packs/Day Years Used Date Never Assessed Sex Assigned at Date Recorded Not on file documented as of this encounter Plan of Treatment Not on filedocumented as of this encounter Procedures Procedure Name Priority Date/Time Associated Diagnosis Comme nts CYTOPATHOLOGY Routine 08/07/2004 0:00 EDT Results for this procedure are i n the results section . documented in this encounter Results CYTOPATHOLOGY (08/07/2004 0:00 EDT) Pathology Report: CYTOPATHOLOGY REPORT [facility] Reports generated via electronic interface contain maryan ginal data; however they are lacking the format of the original re port. Caution should be taken when reading/interpreting unfo rmatted reports. Name: ? BRI CONTE ? Accession #: ? [id number] : ? 1975 (Age: 29) ??F ?Collect Date: ? 0506/2004 Location: ? [facility] ? Receive Date : ? 08/08/2004 Provider: ?DAISY JERED SUPERVISOR PASTE MIXING Copy to: ? Specimen/Source: ?ThinPrep Pap Test, Cervix/ Endocervix Last Menstrual Period: ? 07/16/04 Treatment History: ? Colposcopy: 1991 Other: ? HPVA - HPV testing requested if ASC-US on the current ThinPrep Pap test. ? SPECIMEN ADEQUACY ? Satisfactory for Evaluation - transformation zone component present GENERAL CATEGORIZATION ? Negative for Intraepithelial Lesion or Malignan cy ? Document reviewed and electronically signed by: ? GEMA Enriquez(ASCP) ? Report Date: ??08/14/2004 13:22 End of Report Specimen Performing Organization Address City/State/ZIP Code Phon e Number [facility] [address] [place] [address] SERVICES [facility] [address] [place] [address] documented in this encounter Visit Diagnoses Not on filedocumented in this encounter
[2022-01-25 16:56] LABS: Lab Add On Test DONE
[2022-01-28 16:44] LABS: Elm IgE <0.35 kU/L; Food-Seafood Panel <0.35 kU/L; June Grass IgE <0.35 kU/L; Lamb's Quarter IgE <0.35 kU/L; Milk, IgE <0.35 kU/L; Oak IgE <0.35 kU/L; Oat, IgE <0.35 kU/L; Short Ragweed IgE <0.35 kU/L; Silver Birch IgE <0.35 kU/L; Soybean IgE <0.35 kU/L; Timothy Grass IgE <0.35 kU/L
[2022-02-05 19:16] LABS: Food-Fruit Panel <0.35 kU/L
== END 2022-01-25 02:02 | disposition home or self-care (01) ==
PROVIDERS: PCP Family Medicine; Visit Provider Family Medicine
DX: Z91.018 Allergy to other foods (principal); L20.9 Atopic dermatitis, unspecified; R20.8 Other disturbances of skin sensation
CPT/HCPCS: 36415; 86003

== ENCOUNTER 2022-08-06 04:33 | Outpatient (CLI) | payer MEDICAID, SELFPAY ==
--- NOTE | 2022-08-06 06:30 | DI.CT_ITS ---
Exam(s) CT SINUS WO EXAM: CT SINUS WO CLINICAL HISTORY: ? chronic sinusitis,parosmia,chronic rhinitis,r43.1,j31.0. TECHNIQUE: Imaging Protocol: Axial computed tomography images with coronal and sagittal reformatted images were created and reviewed. No IV Contrast COMPARISON: No exams were available for comparison FINDINGS: MAXILLARY SINUSES: There is complete opacification of the left maxillary sinus. There is prominent mucosal thickening the right maxillary sinus, without level noted in the right max illary sinus. No wall dehiscence. OSTIOMEATAL UNITS: Opacified on the right side. Difficult to delineate on the left side. ETHMOIDAL AIR CELLS: Multilevel mucosal thickening and fluid SPHENOID SINUSES: Mild mucosal thickening noted in the left sphenoid sinus. No associated fluid leve l. The right sphenoid sinus is clear. FRONTAL SINUSES: Left fronto ethmoidal recess is opacified as well as some mucosal thickening in the left frontal sinus. Right frontal sinuses exhibit mild mucosal thickening in the floor. NASAL SEPTUM AND TURBINATES:Nasal septum is midline with no evidence of significant nasal septal spur . There is symmetrical aeration of both middle turbinates. IMPRESSION: 1. Multilevel sinusitis findings as described above. Frontal sinuses also involved. RADIATION DOSE DELIVERED: 133.68mGy.cm Total DLP DATA REPOSITORY: All CT scans at this facility are submitted to the National Radiology Data Registry (NRDR) Dose Index Registry (DIR) with the [employer] (ACR). RADIATION OPTIMIZATION: All CT scans at this facility use at least one of these dose optimization te chniques: automated exposure control; mA and/or kV adjustment per patient size (includes targeted exa ms where dose is matched to clinical indication); or iterative reconstruction.
== END 2022-08-06 04:53 ==
PROVIDERS: PCP Family Medicine; Visit Provider Otolaryngology
DX: J31.0 Chronic rhinitis (principal); R43.1 Parosmia
CPT/HCPCS: 70486

== ENCOUNTER → 2023-01-30 03:21 | Outpatient (CLI) | payer MEDICAID, SELFPAY ==
--- NOTE | 2023-01-30 08:47 | DI.MAMMO_ITS ---
Exam(s) MAMMO SCREENING EXAM: MAMMO SCREENING CLINICAL HISTORY: screening,Z12.39 TECHNIQUE: Mammograms were interpreted according to the usual protocol including computer analysis w [employer] CAD system, tomosynthesis and C-view imaging. COMPARISON: through 2019 FINDINGS: The breasts are composed of heterogeneously dense fibroglandular densities, Breast Density category C . No suspicious masses or suspicious microcalcifications are seen. Scattered calcifications throughout both breasts. No skin thickening or abnormal axillary lymph nodes are seen. There has been no significant change from prior exams. IMPRESSION: BI-RADS Category 2 - Benign Findings Yearly screening mammography is recommended. Breast Density Category C, heterogeneously Dense. The mammogram demonstrates the patient's breast tissue is dense. Dense breast tissue is very common a nd is not abnormal but dense breast tissue can make it harder to find cancer on a mammogram. Also, de nse breast tissue may increase breast cancer risk. This information about the result of the mammogram report was provided to the patient to raise their awareness. Use this report when you speak with the patient about their risks for breast cancer, which includes their family history. At that time, you may recommend additional screening tests (Ultrasound or MRI) as they might be useful based on their r isk. A negative radiographic report should not delay biopsy if a dominant or clinically suspicious mass is present. Up to ten percent of cancers are not identified on mammography. A negative report may reinforce clinical impression. Adenosis and dense breasts may obscure an underlying neoplasm. False positive reports average 6 to 10%.
== END ==
PROVIDERS: PCP Family Medicine; Visit Provider Family Medicine
DX: Z12.31 Encounter for screening mammogram for malignant neoplasm of breast (principal)
CPT/HCPCS: 77063; 77067

== ENCOUNTER 2023-05-22 08:25 | Day surgery (SDC) | payer MEDICAID, SELFPAY ==
--- NOTE | 2023-05-21 19:03 | W.PM.DSUDISC ---
Date of service: 05/22/23 Time of Service: 11:21 Discharge Plan Disposition Patient Disposition: Home Condition: Good Discharge Details Reason For Visit: screening colonoscopy Attending Provider: Samuel Shepard Primary Care Provider: Alyssa Mathew Home Meds and New Rx's Prescriptions: Continued hnpdavyoinel-Zc-pgfj-minerals Tablet 2 tab PO HS betamethasone dipropionate 0.05 % ointment 1 applic topical BID PRN (Reason: rash) levocetirizine [Xyzal] 5 mg tablet 5 mg PO QPM PRN mometasone 50 mcg/actuation spray,non-aerosol 2 spray intranasal DAILY Qty: 17 2RF Rx Instructions: administer into each nostril pantoprazole 40 mg tablet,delayed release (DR/EC) 40 mg PO DAILY Qty: 90 1RF Discontinued bisacodyl [Dulcolax (bisacodyl)] 5 mg tablet,delayed release (DR/EC) 5 mg PO ONCE Qty: 4 0RF Rx Instructions: Colonoscopy Bowel Prep- Per Instructions polyethylene glycol 3350 17 gram/dose powder 238 g PO ONCE Qty: 238 0RF Rx Instructions: Colonoscopy Bowel Prep- Per Instructions Discharge Instructions Additional Instructions: Bri, we were able to complete your colonoscopy today. Your prep was excellent, and I could see everything fine. The colonoscopy was totally negative. Based on your family history, I recommend a 5-year follow-up for your next screening colonoscopy. 1. If tolerated, consume a soft, low fiber diet for 1-2 days. 2[address] Do not drive, drink alcohol, operate machinery, make critical decisions, or do activities that require coordination or balance for 24 hours. 3. Because air was put into your colon during the procedure, expelling air from your rectum (passing gas or farting) is normal. 4. You may not have a bowel movement for 1-3 days because of the colonoscopy prep. This is normal. 5. Go directly to the emergency room if you notice any of the following: Develop chills (warm to touch), or if you have a thermometer and your temperature is above 101 Difficulty breathing or difficultly swallowing Persistent vomiting Severe abdominal pain, other than gas cramps Severe chest pain Black, tarry stools Any bleeding ? exceeding one tablespoon 6. Call your physician if the site where your intravenous was started becomes red, swollen, painful, and warm to touch. 7. Your physician has reviewed your pre-procedure medications. Please continue to take those medications as previously ordered. You will be given specific information/education regarding any changes to your medications before leaving. Activity:: Activity as Tolerated Diet:: As Tolerated Discharge Orders Discharge Orders: Discharge Order (Routine); Ordered 05/21/23 Ordered By: Samuel Shepard DS: Diagnosis Discharge Diagnosis (1) Encounter for screening colonoscopy: Status: Acute Asessment and Plan: Negative screening colonoscopy, based on family history, recommend 5-year follow-up
--- NOTE | 2023-05-21 19:04 | W.COLOREPORT ---
Date of service: 05/22/23 Time of Service: 11:22 Colonoscopy Report Date of procedure: 05/22/23 Pre-op diagnosis general: screening colonoscopy Post-op diagnosis procedure note: other (Negative screening colonoscopy) Procedure: colonoscopy Surgeon: Samuel Shepard Anesthesia Type: General:No Airway Estimated blood loss (mL): 0 Pathology: none sent Complications: None Disposition: same day Indications: Bri is 48 years old and she is due for a screening colonoscopy Prep: Miralax/Dulcolax Procedure Start Time: 10:54 Procedure End Time: 11:12 Retraction Time: 7 Findings: Negative screening colonoscopy Procedure Description: After the induction of monitored anesthetic care, and with the patient in left lateral decubitus position, I began by performing an external anorectal exam.? Perineum and skin were normal, as was the anal verge.? There was no evidence of external hemorrhoids.? Next, I performed a digital rectal exam.? I did not appreciate any abnormal findings.? Next, I advanced a colonoscope into the rectal vault.? I performed retroflexion.? This appeared normal.? Using insufflation, I then advanced the colonoscope beyond the rectal folds and into the sigmoid colon before advancing towards the cecum.? The quality of the prep was outstanding.? The scope was noted to be in the cecum by identification of the ileocecal valve and appendiceal orifice.? I then began withdrawing the colonoscope using repeated irrigation as necessary for full evaluation of the colonic mucosa. ?Once the scope was withdrawn to the level of the rectum, great care was taken to examine portions of the rectal folds.? I did not see any signs of tumors, polyps, or any other worrisome pathology. Finally, the scope was withdrawn and the patient was brought to the same-day surgery recovery unit as the anesthetic wore off. ?The findings and instructions were shared with the patient prior to discharge. [place] Bowel Prep [place] Bowel Prep Right Colon: 3 Left Colon: 3 Transverse Colon: 3 Total Score: 9
[2023-05-22 08:54] VITALS: BP 123/73; PULSE 50; RESP 18; TEMP 36.5; O2SAT 97
[2023-05-22] MEDS: Lactated Ringers 1,000 ML 80 ML IV (09:01)
--- NOTE | 2023-05-22 10:22 | W.ANESPRE ---
General Info Date of Service Date Performed: 05/22/23 Height: 5 ft 2 in Weight: 59.4 kg Body Mass Index (BMI): 23.9 Surgical Procedure: Operation Date: 05/22/23 09:50 Proposed Procedure Side Surgeon cristian Shepard MD Meds Allergies and Home Medications Allergies Allergy/AdvReac Type Severity Reaction Status Date / Time No Known Drug Allergies Allergy Other (See Verified 05/22/23 08:53 Comment) Home Medication Medication Instructions Recorded [id number]-Pv-drmh-minerals 2 tab PO HS 01/12/21 levocetirizine 5 mg tablet (Xyzal) 5 mg PO QPM PRN 01/16/22 mometasone 50 mcg/actuation nasal 2 spray intranasal DAILY #17 grams 06/04/22 spray betamethasone dipropionate 0.05 % 1 applic topical BID PRN rash 01/22/23 topical ointment pantoprazole 40 mg tablet,delayed 40 mg PO DAILY #90 tabs 04/24/23 release Current Visit Medications: Current Medications Generic Name Dose Route Start Last Admin Trade Name Freq PRN Reason Stop Dose Admin Hyoscyamine Sulfate 0.125 mg 05/21/23 19:06 Hyoscyamine 0.125 Mg Sl/Oral/Chew SL 06/20/23 19:05 DIRECTED PRN Ringer's Solution 1,000 mls @ 80 mls/hr 05/22/23 06:00 05/22/23 09:01 IV 05/22/23 23:59 80 mls/hr INFUSION BRANDEN Administration IV Miscellaneous Supplies 1 each 05/22/23 06:00 Iv Access IV 05/22/23 23:59 DIRECTED BRANDEN Ondansetron HCl 4 mg 05/21/23 19:06 Ondansetron 4 Mg/2 Ml Vial IVP 06/20/23 19:05 Q4H PRN PRN Nausea / Vomiting Sodium Chloride 0 ml 05/22/23 06:00 Normal Saline Flush 10 Ml Syr IV 05/22/23 23:59 PRN PRN Sodium Chloride 0 ml 05/22/23 06:00 Normal Saline 10 Ml Vial IJ 05/22/23 23:59 DIRECTED PRN Sterile Water 0 ml 05/22/23 06:00 Water,Injection,Sterile 10 Ml Vial IJ 05/22/23 23:59 DIRECTED PRN PFSH Active Problems Active Problems: Problem Status Onset Code Encounter for screening colonoscopy Z12.11 Chronic sinusitis J32.9 Chronic pruritus L29.9 Flushing R23.2 Parosmia R43.1 Chronic rhinitis J31.0 Multiple food allergies Z91.018 Atopic dermatitis 08/04/17 L20.9 Gastroesophageal reflux disease with esophagitis 08/04/17 K21.0 IUD surveillance 09/24/13 Z30.431 Burning sensation of mouth R20.8 Mild depression F32.A Medical History Medical History FH: colon polyps Family history of colon cancer (09/01/15) PGM, Pat uncle Family history of ischemic heart disease before age 50 (09/24/13) Mom NC prior to 40 Superficial thrombophlebitis Psoriasis Eczema Surgical History Surgical History Colonoscopy - IV Sedation (01/15/16) Tobacco Smoking/Tobacco Use Status: Never Passive smoking exposure: Yes Second hand exposure: Yes Alcohol Alcohol Intake: current Alcohol intake frequency: holidays/special occasions only Alcohol type: hard liquor Substance Use Substance use: Never Substance use type: does not use Vital Signs and Lab Results Vital Signs Most Recent Vital Signs in EMR: Most Recent Vital Signs Temp Pulse Resp BP Pulse Ox 36.5 C 50 L 18 123/73 97 05/22/23 08:54 05/22/23 08:54 05/22/23 08:54 05/22/23 08:54 05/22/23 08:54 Point of Care Results Point of Care Results: POC- Test(urine) Negative 05/22/23 08:54 Lab Results Blood Type / Crossmatch: No Data to Display Complete Blood Count: No Data to Display Complete Metabolic Panel: No Data to Display Liver Function Panel: No Data to Display Coagulation Panel: No Data to Display Cardiac Panel: No Data to Display Arterial Blood Gas: No Data to Display Venous Blood Gas: No Data to Display Pancreas Panel: No Data to Display Thyroid Panel: No Data to Display Infectious Disease: No Data to Display Blood Cultures: No Data to Display Toxicology Panel: No Data to Display Panel: No Data to Display Anesthesia Assessment and Plan Anesthesia History Personal History: No History of Anesthesia Complications Family History: No Family History of Anesthesia Complications Exercise Tolerance Exercise Tolerance: Metabolic Equivalents>4 Pertinent Negatives Pertinent Negatives: No Symptoms of GERD Cardiac & Pulmonary Exam Cardiac Exam: Normal S1/S2 Heart Sounds Pulmonary Exam: Clear Bilateral Breath Sounds Implantable Cardiac Device Does patient have a Pacemaker or an ICD?: No Airway Exam Known Difficult Airway: No Mallampati Class: 2 Mouth Opening: Normal (> 3cm) Thyromental Distance: Greater than 3 cm Neck Range of Motion: Full ROM Neck Circumference: Normal Teeth Condition: Normal Dentition ASA Classification ASA Score: ASA 2 Emergency Case?: No NPO Status NPO Status: NPO Clears >2 hours, Solids >8 hours Status Status: Not Relevant due to Medical History Anesthesia Plan Resuscitation Status: Full Code Anesthesia Technique: General Anesthesia Airway Planned: Natural Airway Monitors Used: Standard Monitors
[2023-05-22 10:23] VITALS: BMI 23.9
[2023-05-22 11:20] VITALS: BP 115/57; PULSE 50; RESP 16; TEMP 36.6; O2SAT 98
--- NOTE | 2023-05-22 11:28 | W.ANESPOSTOP ---
Postoperative Evaluation Date, Time and Location Date Performed: 05/22/23 Time Performed: 11:28 Patient Location: Day Surgery Unit Vital Signs Most Recent Imported Vital Signs: Most Recent Vital Signs Temp Pulse Resp BP Pulse Ox 36.5 C 50 L 18 123/73 97 05/22/23 08:54 05/22/23 08:54 05/22/23 08:54 05/22/23 08:54 05/22/23 08:54 Pain Score Most Recent Pain Score: Most Recent Pain Score Pain Level 0 05/22/23 08:54 Assessment Mental Status: Awake (Alert & Oriented to Patient Baseline) Airway and Respiratory Function: Patent airway with normal (patient baseline) respiratory exam Cardiovascular Function: Hemodynamically Stable Hydration Status: Adequately Hydrated Nausea & Vomiting: No Nausea or Vomiting Pain: Pt. Denies Any Pain Peripheral Nerve Block: Patient did not receive a nerve block
[2023-05-22 11:49] VITALS: BP 124/64; PULSE 56; RESP 16; TEMP 36.5; O2SAT 100
== END 2023-05-22 08:26 | disposition home or self-care (01) ==
LOC: SUR 08:26
PROVIDERS: PCP Family Medicine; Visit Provider Surgery
PROC: 0DJD8ZZ Inspection of Lower Intestinal Tract, Via Natural or Artificial Opening Endoscopic (ICD-10-PCS; CPT 45378; principal; 2023-05-22 09:45)
DX: Z12.11 Encounter for screening for malignant neoplasm of colon (principal); Z80.0 Family history of malignant neoplasm of digestive organs; Z83.719 Family history of colon polyps, unspecified
CPT/HCPCS: 45378; 81025; J2001; J2704

== ENCOUNTER 2024-01-24 16:26 | Observation (INO) | payer MEDICAID, SELFPAY ==
[2024-01-24] VITALS (122 sets, daily range): BP systolic 86–132; BP diastolic 31–91; PULSE 41–77; RESP 8–35; TEMP 36.6; O2SAT 95–100
--- NOTE | 2024-01-24 16:30 | DI.CT_ITS ---
Exam(s) CT BRAIN NECK CTA EXAM: CT BRAIN NECK CTA CLINICAL HISTORY: dizziness nauea vomiting AMS. TECHNIQUE: Imaging Protocol: Axial CT angiography was performed with multi-slice acquisition and mu lti-planar and/or 3D reconstructions. CONTRAST MATERIAL: Intravenous: Omnipaque 350 contrast volume:140 mL COMPARISON: CT CT SINUS WO from 08/06/2022 FINDINGS: Patient motion artifact. CT Head W/O and W: Ventricles and Extra axial spaces: Normal in size and morphology for the patient's age. Hemorrhage: None. Cerebral parenchyma: There is no evidence of an acute territorial infarct. No mass effect is identifi ed. Midline shift: None. Brainstem/Cerebellum: Normal. Calvarium: Normal. Visualized Paranasal sinuses/Mastoids: Clear. Soft Tissues: Unremarkable. Enhancement: Unremarkable. CTA Neck W: Common Carotid: Right: No dissection, occlusion or significant stenosis. Left: No dissection, occlusion or significant stenosis. External Carotid: Right: No occlusion or significant stenosis. Left: No occlusion or significant stenosis. Internal Carotid: Right: No dissection, occlusion or significant stenosis. Left: No dissection, occlusion or significant stenosis. Vertebral Artery: Right: No dissection, occlusion or significant stenosis. Left: No dissection, occlusion or significant stenosis. Lung Apices: Normal. Bones: Within normal limits for the patient's age. Soft Tissues: Normal. Thyroid gland: There is a multinodular thyroid gland. No suspicious nodules are seen. CTA Brain W: Internal Carotid Arteries: No evidence of an aneurysm, occlusion or significant stenosis. Anterior Cerebral Arteries: Right: No aneurysm, occlusion or significant stenosis. Left: No aneurysm, occlusion or significant stenosis. Middle Cerebral Arteries: Right: No aneurysm, occlusion or significant stenosis. Left: No aneurysm, occlusion or significant stenosis. Posterior Cerebral Arteries: The right posterior artery arises from the right posterior communicating artery which is a normal variant. Right: No aneurysm, occlusion or significant stenosis. Left: No aneurysm, occlusion or significant stenosis. Vertebral Arteries: Right: No aneurysm, occlusion or significant stenosis. Left: No aneurysm, occlusion or significant stenosis. Basilar Artery: No aneurysm, occlusion or significant stenosis. IMPRESSION: 1. No large vessel occlusion or significant stenosis on the CT angiography of the head. 2. No acute intracranial process. 3. No occlusion or significant stenosis on the CT angiography of the neck. RADIATION DOSE DELIVERED: 2,859.99mGy.cm Total DLP DATA REPOSITORY: All CT scans at this facility are submitted to the National Radiology Data Registry (NRDR) Dose Index Registry (DIR) with the [employer] (ACR). RADIATION OPTIMIZATION: All CT scans at this facility use at least one of these dose optimization te chniques: automated exposure control; mA and/or kV adjustment per patient size (includes targeted exa ms where dose is matched to clinical indication); or iterative reconstruction.
--- NOTE | 2024-01-24 16:30 | DI.RAD_ITS ---
Exam(s) XR CHEST 1V IN DI DEPT EXAM: XR CHEST 1V IN DI DEPT CLINICAL HISTORY: ams TECHNIQUE: 2D digital imaging was performed of the chest. One image was obtained. An AP view was ob tained. COMPARISON: No exams were available for comparison FINDINGS: MEDIASTINUM: Normal. HEART: Normal. PULMONARY VASCULATURE: Normal. LUNGS: Clear. PLEURAL SPACE: No pleural effusion or pneumothorax. BONE:Within normal limits for the patient's age. OTHER FINDINGS:Normal. IMPRESSION: No acute pulmonary findings. DATA REPOSITORY: RADIATION DOSE DELIVERED:
--- NOTE | 2024-01-24 16:30 | RT.EKG_ITS ---
APPROVED REPORT Exam: Resting ECG Reason for Exam: altered mental status Patient Location: E HR:45 bpm ECG Measurements Heart Rate 45 AXIS MT 131 P 56 QRSd 87 QRS 0 QT 477 T 36 QTc 411 Conclusion Sinus bradycardia...rate< 60 Anteroseptal infarct, age indeterminate...Q >35mS, T neg, V1-V2 Sinus bradycardia normal axis normal intervals, T wave inversion V1 V2
--- NOTE | 2024-01-24 16:40 | ED.GENADUL_ITS ---
Discharge Plan Discharge Details Chief Complaint: CVA/TIA Primary Care Provider: Alyssa Mathew ED Provider: Sarath Ackerman Home Meds and New Rx's Prescriptions: No Action cjmtmetbtpzx-Hg-pvks-minerals Tablet 2 tab PO HS betamethasone dipropionate 0.05 % ointment 1 applic topical BID PRN (Reason: rash) levocetirizine [Xyzal] 5 mg tablet 5 mg PO QPM PRN mometasone 50 mcg/actuation spray,non-aerosol 2 spray intranasal DAILY Qty: 17 2RF Rx Instructions: administer into each nostril pantoprazole 40 mg tablet,delayed release (DR/EC) 40 mg PO DAILY Qty: 90 1RF HPI General Date/Time Provider Initiated Documentation: 01/24/24 16:36 . HPI Narrative: 48-year-old female brought in for evaluation of nausea vomiting dizziness and subjective paresthesia and weakness on her left side unknown onset of symptoms however she does endorse that she has been feeling bad for the last couple of days. New medication took cyclobenzaprine earlier today after being seen at urgent care. Related Data Home Medications ?Medication ?Instructions ?Recorded ?Confirmed pskejgjuhwdg-Yy-dbce-minerals 2 tab PO HS 01/12/21 01/24/24 levocetirizine 5 mg tablet (Xyzal) 5 mg PO QPM PRN 01/16/22 01/24/24 mometasone 50 mcg/actuation nasal 2 spray intranasal DAILY #17 grams 06/04/22 01/24/24 spray betamethasone dipropionate 0.05 % 1 applic topical BID PRN rash 01/22/23 01/24/24 topical ointment pantoprazole 40 mg tablet,delayed 40 mg PO DAILY #90 tabs 10/15/23 01/24/24 release Previous Rx's ?Medication ?Instructions ?Recorded mometasone 50 mcg/actuation nasal 2 spray intranasal DAILY #17 grams 06/04/22 spray pantoprazole 40 mg tablet,delayed 40 mg PO DAILY #90 tabs 10/15/23 release Allergies Allergy/AdvReac Type Severity Reaction Status Date / Time No Known Drug Allergies Allergy Other (See Verified 01/24/24 16:33 Comment) General Stated Complaint: CVA/TIA EDWARD: 2 Exam Narrative Exam Narrative: Appears uncomfortable and nauseous, lying with eyes closed head turn to the right side Slight drying of oromucosa Normal pupils round reactive equal to light no nystagmus noted Quiet speech Normal heart sounds no murmurs rubs or gallops Normal lung sounds no wheeze rales or rhonchi Abdomen soft nontender nondistended Alert, cranial nerves II through XII intact 5-5 strength upper and lower extremities bilaterally no truncal ataxia, extreme dizziness and nausea with movement of head No peripheral edema Course Vital Signs Vital signs: Vital Signs Pulse 66 01/24/24 16:26 Respiratory Rate 22 01/24/24 16:26 Blood Pressure 108/91 H 01/24/24 16:26 Pulse Oximetry 100 01/24/24 16:26 Pulse 66 01/24/24 16:26 Respiratory Rate 22 01/24/24 16:26 Blood Pressure 108/91 H 01/24/24 16:26 Pulse Oximetry 100 01/24/24 16:26 Medical Decision Making 48-year-old female presents with dizziness nausea vomiting has been feeling unwell over the last couple of days, subjective paresthesia to left extremities, triage note endorses subjective weakness on left side however patient has normal strength and sensation upper and lower extremities bilaterally, cranial nerves intact, no nystagmus, slightly dry oral mucosa, provocation of extreme dizziness nausea and vomiting with movement of head, patient endorses history of vertigo, consider vertigo versus posterior CVA versus intracranial hemorrhage versus electrolyte derangement versus dehydration versus viral illness lower suspicion for meningitis or encephalitis lower suspicion for toxicologic process lower suspicious for ACS PE pneumothorax pneumonia or aortic pathology given no chest pain or shortness of breath. Screening labs imaging meclizine fluids patient already received Zofran before arrival 19: 53 some improvement to symptomatology postmedication still with some nausea with movement; CTA head and neck unremarkable labs largely unremarkable. Trial of dexamethasone Benadryl and Ativan given high clinical suspicion of peripheral vertigo. If no improvement will need admission for close observation hydration and MRI of brain 22: 13 symptoms improving after dexamethasone Benadryl and Ativan. Patient is now able to move her head and open her eyes without feeling nauseous or vomiting. Will continue to observe and attempt to ambulate 23: 36 was able to sit patient upright however she still feels symptomatic feels more comfortable laying flat and not moving. Despite improving symptoms and CTA read as negative will consult teleneurology to consider central process to determine whether patient would need more urgent MRI or is able to remain inpatient here at [facility] and wait for MRI on Friday Quality:SDOH Health Related Social Needs: No Data to Display [facility] Active Problems Encounter for screening colonoscopy (Acute) Chronic sinusitis (Chronic) potential surgery needed Chronic pruritus (Chronic) felt to be contact dermatitis, pending allergy testing at [facility] [place] Flushing (Chronic) Parosmia (Acute) Chronic rhinitis (Acute) Multiple food allergies (Chronic) Continue to work with [employer] for food allergies Atopic dermatitis (Acute 08/04/17) Gastroesophageal reflux disease with esophagitis (Acute 08/04/17) s/p EGD 2021, 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; EGD at [facility] [place] negative bx 07/27 IUD surveillance (Acute 09/24/13) managed at [facility] Burning sensation of mouth (Acute) chronic Mild depression (Chronic) Medical History FH: colon polyps Family history of colon cancer (09/01/15) PGM, Pat uncle Family history of ischemic heart disease before age 50 (09/24/13) Mom NH prior to 40 Superficial thrombophlebitis Psoriasis Eczema Surgical History (Updated 05/23/23 @ 09:54 by Steff Mendoza) History of colonoscopy (~05/2023) with [facility] Colonoscopy - IV Sedation (01/15/16) Family History (Updated 01/22/23 @ 15:35 by Alyssa Mathew MD) Mother , 60 Alcohol abuse Asthma Depression Heart disease High cholesterol Myocardial infarction Father , 49 Alcohol abuse Depression Sister Colon polyps Sister Colon polyps Hypothyroidism Daughter No problems noted. Daughter No problems noted. Maternal Grandfather No problems noted. Paternal Grandfather No problems noted. Maternal Grandmother , 88 No problems noted. Paternal Grandmother , 50 Colon cancer Uncle Colon cancer Esophageal cancer Maternal Cousin Hypothyroidism Other Anxiety Arthritis Barretts esophagus Essential hypertension Hyperlipidemia Social History (Updated 05/07/23 @ 08:30 by MIYA Wise) Smoking/Tobacco Use Status: Never Second Hand Exposure: Yes Smoking risk assessment performed?: Yes Alcohol Intake: current Alcohol Intake frequency: holidays/special occasions only Alcohol type: hard liquor Drug use: Never Substance use type: does not use Counseling given: No Adopted: No Caregiver/Support person: No Foster care: No Household members: spouse Housing: house Number of Children: 2 number of grandchildren: 3 Communication Needs: None Education Level: high school Do you need help understanding health information?: Never 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 Pets and animals: Yes Pets and animals: dog(s) and farm animals Sexually active: Yes Do you think of yourself as: straight/heterosexual Current gender identity: female What is your relationship status?: How often do you talk on the phone with friends or family?: once per week How often do you get together with friends or relatives?: once per week How often do you attend restorationist or mormonism services?: 1-3 times per year Do you belong to any clubs or organized social groups?: no Panel score (0-1 are the most socially isolated patients): 1 Frequency: daily Janene/Congregational: Moravian Special janene needs: No Agree to transfusion: Yes Seatbelt use: always Helmet use: Yes Helmet use: always Drive intox or ride w/intox route driver salesperson: No Working smoke detector in home: Yes Carbon monox detector in home: Yes Firearms in home: Yes Firearms unloaded and locked: Yes Do you feel safe at home: Yes Do you feel safe in your relationship?: Yes Would you like helpful sources: No Additional Social history: arrived soon after
[2024-01-24 16:46] LABS: Abs Immature Grans 0.05 10^3/uL (0.0-0.06); Absolute Basophil Count 0.04 10^3/uL (0.0-0.2); Absolute Eosinophil Count 0.03 10^3/uL (0.0-0.7); Absolute Lymphocyte Count 0.98 10^3/uL (1.2-3.4); Absolute Monocyte Count 0.46 10^3/uL (0.1-0.8); Basophils % 0.4 %; Eosinophils % 0.3 %; HGB 15.4 g/dL (11.2-15.7); Immature Grans % 0.5 %; MCH 30.5 pg (27.0-33.0); MCV 87 fL (80-95); MPV 9.6 fL (8.0-11.0); Monocytes % 4.2 %; Neutrophils % 85.6 %; Platelet Count 303 10^3/uL (130-400); RBC 5.05 10^6/uL (3.93-5.22); RDW 11.5 % (11.7-14.6); RDW-SD 36.9 fL; WBC 10.89 10^3/uL (4.4-10.8)
[2024-01-24 16:47] LABS: Absolute Neutrophil Count 9.32 10^3/uL (1.2-6.7)
[2024-01-24 17:00] LABS: INR 1.1 (0.9-1.1); PTT Activated 22.8 sec (23.6-32.8); Prothrombin Time 10.6 sec (9.1-11.1)
[2024-01-24] MEDS: Normal Saline - Diluent 50 ML VIAL IJ (17:00)
[2024-01-24] MEDS: Omnipaque 350 MG/ML 100 ML BTL IJ (17:00)
[2024-01-24 17:16] LABS: ALT 22 U/L (14-59); AST 14 U/L (15-37); Albumin 4.3 g/dL (3.4-5.0); Alkaline Phosphatase 82 U/L (46-116); Anion Gap 14.2 mmol/L (3-11); BUN 10 mg/dL (7-18); CO2 20.8 mmol/L (21.0-32.0); CREATININE 0.7 mg/dL (0.55-1.02); Calcium 9.7 mg/dL (8.5-10.1); Chloride 106 mmol/L (98-107); Creatine Kinase 49 U/L (26-192); Glucose 137 mg/dL (74-106); Lipase 21 U/L (16-77); Magnesium 1.9 mg/dL (1.8-2.4); NT-proBNP 212 pg/mL (<300); Potassium 3.5 mmol/L (3.5-5.1); Sodium 141 mmol/L (136-145)
[2024-01-24 17:17] LABS: Troponin I < 4 ng/L (<or=51)
[2024-01-24 17:27] LABS: Total Protein 7.8 g/dL (6.4-8.2)
[2024-01-24] MEDS: Normal Saline 1,000 ML 1000 ML IV (17:32)
[2024-01-24 17:34] LABS: ETHANOL BLOOD < 3.0 mg/dL (<10)
[2024-01-24 17:57] LABS: Ammonia < 10 umol/L (11-32)
[2024-01-24 17:59] LABS: Acetaminophen < 2 ug/mL (10-30)
[2024-01-24] MEDS: Dexamethasone 10 MG/ML VIAL IVP (18:26)
[2024-01-24 19:00] LABS: Troponin I 4 ng/L (<or=51)
[2024-01-24 19:07] LABS: COVID-19 PCR Negative (Negative); Influenza A PCR Negative (Negative); Influenza B PCR Negative (Negative); RSV PCR Negative (Negative); Source Nasopharynx
[2024-01-24 19:37] LABS: Bilirubin Negative (Negative); Blood Trace-intact (Negative); Clarity Clear (Clear); Glucose Negative (Negative); Ketones 15 mg/dL (Negative); Leukocyte Esterase Negative (Negative); Nitrite Negative (Negative); Specific Gravity 1.015 (1.005-1.025); Urobilinogen 0.2 mg/dL (Up to 0.2); pH 7.5 (5-8)
[2024-01-24 19:39] LABS: Bacteria Rare HPF (Negative); C & S Indicated? No; Casts Negative LPF (Negative); Crystals Negative HPF (Negative); Epithelial Cells Rare HPF (Negative); Mucus Negative (Negative); RBC 0-2 HPF (0-2); WBC Negative HPF (0-5)
[2024-01-24 19:51] LABS: *AMPHETAMINES SCREEN URINE Negative (Negative); *BARBITURATES SCREEN URINE Negative (Negative); *BENZODIAZEPINES SCREEN URINE Negative (Negative); Cannabinoids THC Negative (Negative); Cocaine Screen,Urine Negative (Negative); METHADONE URINE SCREEN Negative (Negative); OPIATES URINE SCREEN Negative (Negative)
[2024-01-24 19:52] LABS: Tricyclic Antidepressants Negative (Negative)
[2024-01-24] MEDS: diphenhydrAMINE 50 MG/ML VIAL 25 MG IVP (20:00)
[2024-01-24] MEDS: LORazepam 2 MG/ML VIAL 0.5 MG IVP (20:00)
--- NOTE | 2024-01-24 23:39 | W.EDPROG ---
Date of service: 01/24/24 Time of Service: 23:39 Medical Decision Making This patient was signed out to me. Please see previous notes for H&P and initial eval. In brief, 48yo F presenting with vertigo. CTA normal, symptoms somewhat responsive to medication however still unable to walk 6 hours into ED stay. Signed out pending teleneurology. Anticipate admission to [facility] for continued symptom managment and MRI when available on Friday vs transfer for MRI/neurology pending teleneuro recommendations. Teleneurology evaluated patient; unclear if peripheral vs central vertigo. Advised MRI & echocardiogram (Friday acceptable time frame) and treating with asa 81mg daily and plavix 300mg tonight (if able to tolerate PO) followed by plavix 75mg daily pending MRI. Discussed with patient and she is agreeable to this plan. Discussed with [facility] hospitalist Dr. Botello; pt accepted to medicine service. Awaiting admission orders and transfer to the floor. Quality:SDOH Health Related Social Needs: No Data to Display Sign Out Sign Out Data: Sign Out Comment: pending tele neuro for eval of refractory vertigo, consider admit for MRI or transfer for neuro/more urgent MRI Last updated by Sarath Ackerman MD at 01/24/24 23:38 Discharge Plan Disposition Patient Disposition: Admit to [facility] Condition: Serious Discharge Details Clinical Impression: Vertigo Primary Care Provider: Alyssa Mathew ED Provider: Claire Vera Home Meds and New Rx's Prescriptions: No Action gvmnqvizkttl-Nn-mmcx-minerals Tablet 2 tab PO HS betamethasone dipropionate 0.05 % ointment 1 applic topical BID PRN (Reason: rash) levocetirizine [Xyzal] 5 mg tablet 5 mg PO QPM PRN mometasone 50 mcg/actuation spray,non-aerosol 2 spray intranasal DAILY Qty: 17 2RF Rx Instructions: administer into each nostril pantoprazole 40 mg tablet,delayed release (DR/EC) 40 mg PO DAILY Qty: 90 1RF
[2024-01-25] VITALS (57 sets, daily range): BP systolic 95–116; BP diastolic 43–67; PULSE 42–72; RESP 14–27; TEMP 36.5–37.6; O2SAT 95–100
--- NOTE | 2024-01-25 01:04 | W.PM.HP.N ---
Date of service: 01/25/24 Time of Service: 01:04 Assessment and Plan Assessment and plan (1) TIA (transient ischemic attack): Start date: 01/25/24 Status: Acute Assessment and plan: This is a 48-year-old lady presenting with acute vertiginous symptoms which are severe and have associated left sided symptoms with difficulty gazing to the left. CT of the head and neck were negative teleneurology advised full evaluation for TIA treatment with initiation of Plavix and aspirin. She will have an MRI of the brain when available and echocardiogram with bubble study. Physical therapy will see the patient in the morning. She is a full code. (2) Vertigo: Start date: 01/25/24 Status: Acute Assessment and plan: She does have some element of vertigo and meclizine 25 mg 3 times daily will be administered. Zofran sublingual will be given for nausea. History of Present Illness History of Present Illness Chief Complaint: Severe dizziness with nausea and unsteady ambulation. Narrative: This is a 48-year-old female patient who presented with severe vertiginous symptoms to the ED after sudden onset of symptoms a day of presentation. Patient did have a fall 20 years ago injuring her neck with no medical follow-up but recently awakened with neck pain 2 days prior to presentation and associated left-sided symptoms with paresthesias down her left arm and left lower extremity involving fingers and toes. There was some discomfort but no severe pain. This has happened intermittently in the past but not as severe. On the day of presentation the patient awakened normally and had her usual coffee drink, and then began to have unsteadiness and dizziness having to hold onto things in the house with her legs not seeming to be able to hold her. She did have some room spinning sensation such as with previous vertigo symptoms but more severe. She did present to the walk-in clinic for evaluation did have an EKG because of her left arm symptoms but did not receive treatment for vertigo with worsening symptoms she did present to the ED and at first refused meclizine but did respond to Benadryl and Ativan. She was having nausea after her clinic visit and this was treated in the ED with Zofran. She will be placed on promethazine while being further evaluated for possible TIA. Because of the severity of her symptoms she did have a CT of the head and neck which were negative for acute occlusions or infarction and teleneurology did eventually see the patient and advised observation with TIA treatment with aspirin and Plavix and workup to be completed with MRI of the brain and echocardiogram with bubble study. In the ED the patient was comfortable lying still without movement of her head and symptoms did worsen when she would lie on her left side or attempt to sit up. She was unable to ambulate and will require hospitalization for further workup as above. 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 She is physically active and on minimal medications. She is a full code. Review of Systems Narrative: 13 point review of systems otherwise unrevealing or stable. [facility] All Active Problems (Updated 01/25/24 @ 01:07 by Truman Botello) TIA (transient ischemic attack) (Acute) Vertigo (Acute) Encounter for screening colonoscopy (Acute) Chronic sinusitis (Chronic) potential surgery needed Chronic pruritus (Chronic) felt to be contact dermatitis, pending allergy testing at [facility] Flushing (Chronic) Parosmia (Acute) Chronic rhinitis (Acute) Multiple food allergies (Chronic) Continue to work with [employer] for food allergies Atopic dermatitis (Acute 08/04/17) Gastroesophageal reflux disease with esophagitis (Acute 08/04/17) s/p EGD 2021, 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; EGD at [facility] negative bx 07/27 IUD surveillance (Acute 09/24/13) managed at [facility] Burning sensation of mouth (Acute) chronic Mild depression (Chronic) Medical History FH: colon polyps Family history of colon cancer (09/01/15) PGM, Pat uncle Family history of ischemic heart disease before age 50 (09/24/13) Mom [place] prior to 40 Superficial thrombophlebitis Psoriasis Eczema Surgical History History of colonoscopy (~05/2023) with Mac Colonoscopy - IV Sedation (01/15/16) Family History Mother , 60 Alcohol abuse Asthma Depression Heart disease High cholesterol Myocardial infarction Father , 49 Alcohol abuse Depression Sister Colon polyps Sister Colon polyps Hypothyroidism Daughter No problems noted. Daughter No problems noted. Maternal Grandfather No problems noted. Paternal Grandfather No problems noted. Maternal Grandmother , 88 No problems noted. Paternal Grandmother , 50 Colon cancer Uncle Colon cancer Esophageal cancer Maternal Cousin Hypothyroidism Other Anxiety Arthritis Barretts esophagus Essential hypertension Hyperlipidemia Social History Smoking/Tobacco Use Status: Never Second Hand Exposure: Yes Smoking risk assessment performed?: Yes Alcohol Intake: current Alcohol Intake frequency: holidays/special occasions only Alcohol type: hard liquor Drug use: Never Substance use type: does not use Counseling given: No Adopted: No Caregiver/Support person: No Foster care: No Household members: spouse Housing: house Number of Children: 2 number of grandchildren: 3 Communication Needs: None Education Level: high school Do you need help understanding health information?: Never 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 Pets and animals: Yes Pets and animals: dog(s) and farm animals Sexually active: Yes Do you think of yourself as: straight/heterosexual Current gender identity: female What is your relationship status?: How often do you talk on the phone with friends or family?: once per week How often do you get together with friends or relatives?: once per week How often do you attend confucianist or methodist services?: 1-3 times per year Do you belong to any clubs or organized social groups?: no Panel score (0-1 are the most socially isolated patients): 1 Frequency: daily Janene/Faith: Yazdanism Special janene needs: No Agree to transfusion: Yes Seatbelt use: always Helmet use: Yes Helmet use: always Drive intox or ride w/intox driver's license reviewing officer: No Working smoke detector in home: Yes Carbon monox detector in home: Yes Firearms in home: Yes Firearms unloaded and locked: Yes Do you feel safe at home: Yes Do you feel safe in your relationship?: Yes Would you like helpful sources: No Additional Social history: arrived soon after Meds Allergies and Home Medications Allergies Allergy/AdvReac Type Severity Reaction Status Date / Time No Known Drug Allergies Allergy Other (See Verified 01/24/24 16:33 Comment) Home Medications ?Medication ?Instructions ?Recorded ?Confirmed ?Type [id number]-[id number] 2 tab PO HS 01/12/21 01/24/24 History levocetirizine 5 mg tablet (Xyzal) 5 mg PO QPM PRN 01/16/22 01/24/24 History mometasone 50 mcg/actuation nasal 2 spray intranasal DAILY #17 grams 06/04/22 01/24/24 Rx spray betamethasone dipropionate 0.05 % 1 applic topical BID PRN rash 01/22/23 01/24/24 History topical ointment pantoprazole 40 mg tablet,delayed 40 mg PO DAILY #90 tabs 10/15/23 01/24/24 Rx release Exam Narrative Exam Narrative: General: Patient is lying on the gurney in moderate distress from her vertiginous symptoms and nausea, she is alert and oriented x 3. She is soft-spoken with conversation. HEENT: Normocephalic, eyes with pupils equal and react to light symmetrically with difficulty gazing to the left with slight nystagmus but no nystagmus with right lateral gaze. Otherwise extraocular movement intact and sclera anicteric. Oropharynx with moist mucosa and missing teeth with discoloration otherwise fair dentition. Neck: Supple without JVD. No auscultated bruits. Back: Normal posture without CVA tenderness. Lungs: Aeration and clear to auscultation percussion. No expiratory wheeze. No focal rales or rhonchi. Breast: Exam deferred. Heart: Regular rate and rhythm with no appreciable murmur or gallop. Abdomen: Slightly obese contour, nontender to palpation no guarding or rebound. No palpable hepatosplenomegaly. Bowel sounds positive all quadrants. Genitalia/rectal: Exam deferred. Extremities: Without clubbing, cyanosis or pitting edema. Good capillary refill. Skin: Normal color, warm and dry. Neuro: Cranial nerves II through XII grossly intact with slight difficulty looking to the left with no true nystagmus, no focal motor deficits and no tremor. Psych: Anxious affect with depressed mood. No abnormal thought processes. Remote and recent memory grossly intact. Results Imaging Imaging Studies: EXAM: XR CHEST 1V IN DI DEPT CLINICAL HISTORY: ams TECHNIQUE: 2D digital imaging was performed of the chest. One image was obtained. An AP view was obtained. COMPARISON: No exams were available for comparison FINDINGS: MEDIASTINUM: Normal. HEART: Normal. PULMONARY VASCULATURE: Normal. LUNGS: Clear. PLEURAL SPACE: No pleural effusion or pneumothorax. BONE:Within normal limits for the patient's age. OTHER FINDINGS:Normal. IMPRESSION: No acute pulmonary findings. EXAM: CT BRAIN NECK CTA CLINICAL HISTORY: dizziness nauea vomiting AMS. TECHNIQUE: Imaging Protocol: Axial CT angiography was performed with multi-slice acquisition and multi-planar and/or 3D reconstructions. CONTRAST MATERIAL: Intravenous: Omnipaque 350 contrast volume:140 mL COMPARISON: CT CT SINUS WO from 08/06/2022 FINDINGS: Patient motion artifact. CT Head W/O and W: Ventricles and Extra axial spaces: Normal in size and morphology for the patient's age. Hemorrhage: None. Cerebral parenchyma: There is no evidence of an acute territorial infarct. No mass effect is identified. Midline shift: None. Brainstem/Cerebellum: Normal. Calvarium: Normal. Visualized Paranasal sinuses/Mastoids: Clear. Soft Tissues: Unremarkable. Enhancement: Unremarkable. CTA Neck W: Common Carotid: Right: No dissection, occlusion or significant stenosis. Left: No dissection, occlusion or significant stenosis. External Carotid: Right: No occlusion or significant stenosis. Left: No occlusion or significant stenosis. Internal Carotid: Right: No dissection, occlusion or significant stenosis. Left: No dissection, occlusion or significant stenosis. Vertebral Artery: Right: No dissection, occlusion or significant stenosis. Left: No dissection, occlusion or significant stenosis. Lung Apices: Normal. Bones: Within normal limits for the patient's age. Soft Tissues: Normal. Thyroid gland: There is a multinodular thyroid gland. No suspicious nodules are seen. CTA Brain W: Internal Carotid Arteries: No evidence of an aneurysm, occlusion or significant stenosis. Anterior Cerebral Arteries: Right: No aneurysm, occlusion or significant stenosis. Left: No aneurysm, occlusion or significant stenosis. Middle Cerebral Arteries: Right: No aneurysm, occlusion or significant stenosis. Left: No aneurysm, occlusion or significant stenosis. Posterior Cerebral Arteries: The right posterior artery arises from the right posterior communicating artery which is a normal variant. Right: No aneurysm, occlusion or significant stenosis. Left: No aneurysm, occlusion or significant stenosis. Vertebral Arteries: Right: No aneurysm, occlusion or significant stenosis. Left: No aneurysm, occlusion or significant stenosis. Basilar Artery: No aneurysm, occlusion or significant stenosis. IMPRESSION: 1. No large vessel occlusion or significant stenosis on the CT angiography of the head. 2. No acute intracranial process. 3. No occlusion or significant stenosis on the CT angiography of the neck. Labs 01/25/24 06:10 01/25/24 06:10 Labs: Laboratory Results - last 24 hr 01/24/24 01/24/24 01/24/24 16:35 17:10 17:25 WBC 10.89 H RBC 5.05 Hgb 15.4 Hct 44.0 MCV 87 MCH 30.5 MCHC 35.0 RDW 11.5 L Plt Count 303 MPV 9.6 Immature Gran % 0.5 Neutrophils % 85.6 Lymphocytes % 9.0 Monocytes % 4.2 Eosinophils % 0.3 Basophils % 0.4 Nucleated RBC % 0.0 Absolute Neutrophils 9.32 H Absolute Lymphocytes 0.98 L Absolute Monocytes 0.46 Absolute Eosinophils 0.03 Absolute Basophils 0.04 PT 10.6 INR 1.1 APTT 22.8 L Sodium 141 Potassium 3.5 Chloride 106 Carbon Dioxide 20.8 L Anion Gap 14.2 H BUN 10 Creatinine 0.7 Est GFR (CKD-EPI 2020) 105.30 Glucose 137 H Calcium 9.7 Magnesium 1.9 Total Bilirubin 0.70 AST 14 L ALT 22 Alkaline Phosphatase 82 Ammonia < 10 L Creatine Kinase 49 Troponin I < 4 NT-Pro-B Natriuret Pep 212 Total Protein 7.8 Albumin 4.3 Lipase 21 TSH 2.30 Urine Color Urine Clarity Urine pH Ur Specific [place] Urine Protein Urine Ketones Urine Blood Urine Nitrite Urine Bilirubin Urine Urobilinogen Ur Leukocyte Esterase Urine RBC Urine WBC Ur Epithelial Cells Urine Crystals Urine Bacteria Urine Casts Urine Mucus Ur Culture Indicated? Urine Glucose Urine Opiates Screen Urine Methadone Screen Acetaminophen < 2 Ur Barbiturates Screen Ur Tricyclics Screen Ur Amphetamines Screen U Benzodiazepines Scrn Urine Cocaine Screen Ur THC Screen Ethyl Alcohol < 3.0 COVID-19 Source Nasopharynx SARS-CoV-2 (PCR) Negative Influenza Type A (PCR) Negative Influenza Type B (PCR) Negative RSV (PCR) Negative 01/24/24 01/24/24 18:32 19:30 WBC RBC Hgb Hct MCV MCH MCHC RDW Plt Count MPV Immature Gran % Neutrophils % Lymphocytes % Monocytes % Eosinophils % Basophils % Nucleated RBC % Absolute Neutrophils Absolute Lymphocytes Absolute Monocytes Absolute Eosinophils Absolute Basophils PT INR APTT Sodium Potassium Chloride Carbon Dioxide Anion Gap BUN Creatinine Est GFR (CKD-EPI 2020) Glucose Calcium Magnesium Total Bilirubin AST ALT Alkaline Phosphatase Ammonia Creatine Kinase Troponin I 4 NT-Pro-B Natriuret Pep Total Protein Albumin Lipase TSH Urine Color Yellow Urine Clarity Clear Urine pH 7.5 Ur Specific [place] 1.015 Urine Protein Negative Urine Ketones 15 H Urine Blood Trace-intact H Urine Nitrite Negative Urine Bilirubin Negative Urine Urobilinogen 0.2 Ur Leukocyte Esterase Negative Urine RBC 0-2 Urine WBC Negative Ur Epithelial Cells Rare Urine Crystals Negative Urine Bacteria Rare Urine Casts Negative Urine Mucus Negative Ur Culture Indicated? No Urine Glucose Negative Urine Opiates Screen Negative Urine Methadone Screen Negative Acetaminophen Ur Barbiturates Screen Negative Ur Tricyclics Screen Negative Ur Amphetamines Screen Negative U Benzodiazepines Scrn Negative Urine Cocaine Screen Negative Ur THC Screen Negative Ethyl Alcohol COVID-19 Source SARS-CoV-2 (PCR) Influenza Type A (PCR) Influenza Type B (PCR) RSV (PCR) Last Vital Signs Temp 36.6 C 01/24/24 17:30 Pulse 70 01/24/24 21:01 Resp 19 01/24/24 21:09 BP 94/55 L 01/24/24 21:01 Pulse Ox 99 01/24/24 21:09 Time Spent Time spent with Patient: 55-74 minutes Time was spent: preparing to see the patient(eg.review tests), obtaining and/or reviewing separately otained hiistory, ordering medications,tests, procedures, referring, communicating with other health day care attendant, indepentently interpreting results and care coordination
[2024-01-25] MEDS: Ondansetron 4 MG/2 ML VIAL IVP (01:25)
[2024-01-25] MEDS: Aspirin 81 MG CHEW CH (01:26)
--- NOTE | 2024-01-25 02:13 | NUR.NOTE ---
Nursing Note: Pt alert and oriented, speaks in a soft voice. The pt stated that her discomfort began a few days ago and it was in her upper left shoulder blade below her neck and slight numbness to her left arm, if she laid on her left side she stated that the pain and numbness went from her left buttocks and down her leg and was uncomfortable. Today the pt woke up with the numbness but about 0700 she began to feel very dizzy, unsteady and nauseated. the pt began to vomit when standing, she laid down and stated the room was spinning and unable to move without being nauseated and vomiting bile. The pt was unable to tolerate any po meds during the day so IV meds were given, the pt was able to rest after IV meds and able to use the bed martins. Tele neuro exam done, no neuro deficits noted. pt still unable to move without increased nausea. IV zofran given, po chew asa given, po meds ordered, pt currently drinking gingerale
--- NOTE | 2024-01-25 02:22 | W.PC.ACHO ---
Registration Status: Primary Language: Preferred Language: ED Information & Data Chief Complaint CVA/TIA 01/24/24 16:43 Triage Note started today left side arm 01/24/24 16:26 numbness and tingle feel weak on left side, dizziness , N/V 4mg zofran en route Medical / Surgical History (Last Reviewed 01/25/24 @ 01:04 by Truman Botello) FH: colon polyps Family history of colon cancer (09/01/15) Family history of ischemic heart disease before age 50 (09/24/13) Superficial thrombophlebitis Psoriasis Eczema (Last Reviewed 01/25/24 @ 01:04 by Truman Botello) History of colonoscopy (~05/2023) Colonoscopy - IV Sedation (01/15/16) Most Recent Vital Signs Temperature 36.6 C 01/24/24 17:30 Temperature Source Oral 01/24/24 17:30 Pulse 51 L 01/25/24 02:01 Pulse 51 L 01/24/24 18:31 Respiratory Rate 19 01/25/24 02:08 Respiratory Effort Normal, Non-Labored 01/24/24 19:39 Respiratory Depth Normal 01/24/24 19:39 Respiratory Pattern Normal 01/24/24 19:39 Blood Pressure 109/43 L 01/25/24 02:01 Blood Pressure Mean 76 01/24/24 19:39 Blood Pressure Position Supine 01/24/24 19:39 Pulse Oximetry 97 01/25/24 02:08 Oxygen Delivery Method Room Air 01/24/24 19:39 Oxygen Flow Rate 0 01/24/24 19:39 Pain Level 0 01/24/24 19:39 Allergies No Known Drug Allergies Allergy (Verified 01/24/24 16:33) Other (See Comment) Precautions Isolation Standard precaution 01/24/24 16:38 Active Medications Generic Name Dose Route Start Last Admin Trade Name Freq PRN Reason Stop Dose Admin Iohexol 100 ml 01/24/24 17:00 01/24/24 17:00 Omnipaque 350 Mg/Ml 100 Ml Btl IJ 02/23/24 23:59 140 ml DIRECTED BRANDEN Administration Sodium Chloride 50 ml 01/24/24 17:00 01/24/24 17:00 Normal Saline - Diluent 50 Ml Vial IJ 100 ml .FOR DI USE BRANDEN Administration IV IV Catheter Type [Right Peripheral IV Antecubital] IV Catheter Gauge [Right 18 Antecubital] Diagnostics 01/24/24 01/24/24 01/24/24 Range/Units 19:30 18:32 17:25 WBC (4.4-10.8) 10^3/uL RBC (3.93-5.22) 10^6/uL Hgb (11.2-15.7) g/dL Hct (36.0-46.0) % MCV (80-95) fL MCH (27.0-33.0) pg MCHC (32.0-36.0) % RDW (11.7-14.6) % Plt Count (130-400) 10^3/uL MPV (8.0-11.0) fL Immature Gran % % Neutrophils % % Lymphocytes % % Monocytes % % Eosinophils % % Basophils % % Nucleated RBC % (0.0-0.3) % Absolute Neutrophils (1.2-6.7) 10^3/uL Absolute Lymphocytes (1.2-3.4) 10^3/uL Absolute Monocytes (0.1-0.8) 10^3/uL Absolute Eosinophils (0.0-0.7) 10^3/uL Absolute Basophils (0.0-0.2) 10^3/uL PT (9.1-11.1) sec INR (0.9-1.1) APTT (23.6-32.8) sec Sodium (136-145) mmol/L Potassium (3.5-5.1) mmol/L Chloride (98-107) mmol/L Carbon Dioxide (21.0-32.0) mmol/L Anion Gap (3-11) mmol/L BUN (7-18) mg/dL Creatinine (0.55-1.02) mg/dL Est GFR (CKD-EPI 2020) (mL/min/1.73m2) Glucose (74-106) mg/dL Calcium (8.5-10.1) mg/dL Magnesium (1.8-2.4) mg/dL Total Bilirubin (0.2-1.0) mg/dL AST (15-37) U/L ALT (14-59) U/L Alkaline Phosphatase (46-116) U/L Ammonia (11-32) umol/L Creatine Kinase (26-192) U/L Troponin I 4 (<or=51) ng/L NT-Pro-B Natriuret Pep (<300) pg/mL Total Protein (6.4-8.2) g/dL Albumin (3.4-5.0) g/dL Lipase (16-77) U/L TSH (0.36-3.74) uIU/mL Urine Color Yellow (Yellow) Urine Clarity Clear (Clear) Urine pH 7.5 (5-8) Ur Specific Wrens 1.015 (1.005-1.025) Urine Protein Negative (Neg-Trace) mg/dL Urine Ketones 15 H (Negative) mg/dL Urine Blood Trace-intact H (Negative) Urine Nitrite Negative (Negative) Urine Bilirubin Negative (Negative) Urine Urobilinogen 0.2 (Up to 0.2) mg/dL Ur Leukocyte Esterase Negative (Negative) Urine RBC 0-2 (0-2) HPF Urine WBC Negative (0-5) HPF Ur Epithelial Cells Rare (Negative) HPF Urine Crystals Negative (Negative) HPF Urine Bacteria Rare (Negative) HPF Urine Casts Negative (Negative) LPF Urine Mucus Negative (Negative) Ur Culture Indicated? No Urine Glucose Negative (Negative) mg/dL Urine Opiates Screen Negative (Negative) Urine Methadone Screen Negative (Negative) Acetaminophen (10-30) ug/mL Ur Barbiturates Screen Negative (Negative) Ur Tricyclics Screen Negative (Negative) Ur Amphetamines Screen Negative (Negative) U Benzodiazepines Scrn Negative (Negative) Urine Cocaine Screen Negative (Negative) Ur THC Screen Negative (Negative) Ethyl Alcohol (<10) mg/dL COVID-19 Source Nasopharynx SARS-CoV-2 (PCR) Negative (Negative) Influenza Type A (PCR) Negative (Negative) Influenza Type B (PCR) Negative (Negative) RSV (PCR) Negative (Negative) 01/24/24 01/24/24 Range/Units 17:10 16:35 WBC 10.89 H (4.4-10.8) 10^3/uL RBC 5.05 (3.93-5.22) 10^6/uL Hgb 15.4 (11.2-15.7) g/dL Hct 44.0 (36.0-46.0) % MCV 87 (80-95) fL MCH 30.5 (27.0-33.0) pg MCHC 35.0 (32.0-36.0) % RDW 11.5 L (11.7-14.6) % Plt Count 303 (130-400) 10^3/uL MPV 9.6 (8.0-11.0) fL Immature Gran % 0.5 % Neutrophils % 85.6 % Lymphocytes % 9.0 % Monocytes % 4.2 % Eosinophils % 0.3 % Basophils % 0.4 % Nucleated RBC % 0.0 (0.0-0.3) % Absolute Neutrophils 9.32 H (1.2-6.7) 10^3/uL Absolute Lymphocytes 0.98 L (1.2-3.4) 10^3/uL Absolute Monocytes 0.46 (0.1-0.8) 10^3/uL Absolute Eosinophils 0.03 (0.0-0.7) 10^3/uL Absolute Basophils 0.04 (0.0-0.2) 10^3/uL PT 10.6 (9.1-11.1) sec INR 1.1 (0.9-1.1) APTT 22.8 L (23.6-32.8) sec Sodium 141 (136-145) mmol/L Potassium 3.5 (3.5-5.1) mmol/L Chloride 106 (98-107) mmol/L Carbon Dioxide 20.8 L (21.0-32.0) mmol/L Anion Gap 14.2 H (3-11) mmol/L BUN 10 (7-18) mg/dL Creatinine 0.7 (0.55-1.02) mg/dL Est GFR (CKD-EPI 2020) 105.30 (mL/min/1.73m2) Glucose 137 H (74-106) mg/dL Calcium 9.7 (8.5-10.1) mg/dL Magnesium 1.9 (1.8-2.4) mg/dL Total Bilirubin 0.70 (0.2-1.0) mg/dL AST 14 L (15-37) U/L ALT 22 (14-59) U/L Alkaline Phosphatase 82 (46-116) U/L Ammonia < 10 L (11-32) umol/L Creatine Kinase 49 (26-192) U/L Troponin I < 4 (<or=51) ng/L NT-Pro-B Natriuret Pep 212 (<300) pg/mL Total Protein 7.8 (6.4-8.2) g/dL Albumin 4.3 (3.4-5.0) g/dL Lipase 21 (16-77) U/L TSH 2.30 (0.36-3.74) uIU/mL Urine Color (Yellow) Urine Clarity (Clear) Urine pH (5-8) Ur Specific Wrens (1.005-1.025) Urine Protein (Neg-Trace) mg/dL Urine Ketones (Negative) mg/dL Urine Blood (Negative) Urine Nitrite (Negative) Urine Bilirubin (Negative) Urine Urobilinogen (Up to 0.2) mg/dL Ur Leukocyte Esterase (Negative) Urine RBC (0-2) HPF Urine WBC (0-5) HPF Ur Epithelial Cells (Negative) HPF Urine Crystals (Negative) HPF Urine Bacteria (Negative) HPF Urine Casts (Negative) LPF Urine Mucus (Negative) Ur Culture Indicated? Urine Glucose (Negative) mg/dL Urine Opiates Screen (Negative) Urine Methadone Screen (Negative) Acetaminophen < 2 (10-30) ug/mL Ur Barbiturates Screen (Negative) Ur Tricyclics Screen (Negative) Ur Amphetamines Screen (Negative) U Benzodiazepines Scrn (Negative) Urine Cocaine Screen (Negative) Ur THC Screen (Negative) Ethyl Alcohol < 3.0 (<10) mg/dL COVID-19 Source SARS-CoV-2 (PCR) (Negative) Influenza Type A (PCR) (Negative) Influenza Type B (PCR) (Negative) RSV (PCR) (Negative) [id number]-[id number]-[id number] Documentation Fingerstick Glucose Start: 01/24/24 16:35 Freq: Status: Complete Protocol: Activity Type Activity Date Activity User E-sign Co-sign Detail Recorded Client Recorded Date Recorded By Document 01/24/24 16:34 BKG DAEMON(3) [id number] 01/24/24 16:35 BKG DAEMON(4) Fingerstick Glucose Start: 01/24/24 16:37 Freq: .Stat Status: Active Protocol: Activity Type Activity Date Activity User E-sign Co-sign Detail Recorded Client Recorded Date Recorded By Document 01/24/24 16:38 NANEESH [id number] 01/24/24 16:51 [place] Intake and Output - 24 Hour Total 01/24/24 16:11 thru 01/24/24 18:53 Intake Total 1000 Balance 1000 Weight 56.3 kg Intake: IV 1000 Falls Risk Assessment History of Falls No History 01/24/24 16:38 Contributing Factors No Factors 01/24/24 16:38 Ambulatory Aids Independent 01/24/24 16:38 Tubes/Lines None 01/24/24 16:38 Gait Evaluation No gait disturbance 01/24/24 16:38 Cognition No cognitive impairment 01/24/24 16:38 Fall Total Score 0 01/24/24 16:38 Level of Risk Standard/Low Risk 01/24/24 16:38 Problems (Last Reviewed 01/25/24 @ 01:04 by Truman Botello) TIA (transient ischemic attack) (Acute) Vertigo (Acute) v v v v v v v v v Sending and/or Receiving Nurses: Please use comment section below to note any information pertinent to the patient hand-off not included above. Information / Comments: Pt presents to the ED after having N/V along with L sided weakness/discomfort in her shoulder blade for the past several days. Pt dizzy, unable to open eyes or sit up w/o episodes of emesis. Given Benadryl 25mg IVP, Dexamethasone 10mg IVP and Lorazepam 0.5 mg IVP as well as a liter NS bolus. Pt more comfortable on R side, able to sit up slightly and open eyes. No c/o of blurred vision or other deficits. Tele neuro consult done in ED. Pt to await MRI on Friday. VSS, pt is on RA. Report received from: Perico Yin RN
[2024-01-25] MEDS: Clopidogrel 300 MG TAB PO (02:45)
[2024-01-25] MEDS: Meclizine 25 MG TAB PO ×3 (02:46→21:11)
[2024-01-25 06:37] LABS: HCT 42.2 % (36.0-46.0); HGB 14.6 g/dL (11.2-15.7); MCH 30.7 pg (27.0-33.0); MCHC 34.6 % (32.0-36.0); MCV 89 fL (80-95); MPV 9.8 fL (8.0-11.0); Platelet Count 300 10^3/uL (130-400); RBC 4.76 10^6/uL (3.93-5.22); RDW 11.9 % (11.7-14.6); RDW-SD 38.8 fL; WBC 13.61 10^3/uL (4.4-10.8)
[2024-01-25] MEDS: Ondansetron O.D.T. 4 MG TABEF PO (06:38)
[2024-01-25] MEDS: Heparin 5,000 UNITS/ML VIAL 5000 UNITS SC ×3 (06:39→21:11)
[2024-01-25 06:58] LABS: ALT 20 U/L (14-59); AST 13 U/L (15-37); Albumin 3.8 g/dL (3.4-5.0); Alkaline Phosphatase 79 U/L (46-116); Anion Gap 10.5 mmol/L (3-11); BUN 13 mg/dL (7-18); Bilirubin, Total 0.56 mg/dL (0.2-1.0); CO2 24.5 mmol/L (21.0-32.0); CREATININE 0.7 mg/dL (0.55-1.02); Calcium 8.8 mg/dL (8.5-10.1); Chloride 107 mmol/L (98-107); Glucose 135 mg/dL (74-106); Magnesium 2.1 mg/dL (1.8-2.4); Potassium 3.9 mmol/L (3.5-5.1); Sodium 142 mmol/L (136-145); Total Protein 7.3 g/dL (6.4-8.2)
[2024-01-25] MEDS: Clopidogrel 75 MG TAB PO (08:17)
[2024-01-25] MEDS: Aspirin 81 MG CHEW PO (08:17)
[2024-01-25] MEDS: Pantoprazole 40 MG TABCR PO (08:17)
[2024-01-25] MEDS: Multivitamin w/Minerals TAB 1 TAB PO (08:17)
--- NOTE | 2024-01-25 09:34 | PDOC.CMIN ---
Date of service: 01/25/24 Time of Service: 09:34 Care Management Initial Assmt Initial Assessment Reason for Hospitalization: TIA Functional Status/Living Situation Patient Presentation: Bri was lying in bed when CM met with her. She was admitted with a TIA accompanied by nausea, vomiting and vertigo. She informed CM that she is just now starting to feel a little better with the medication she is receiving. 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 She is independent at baseline and does not receive any community services. Bri is scheduled to have an MRI and an Echocardiogram with bubble study tomorrow. Town of Residence: [place] Resides with: Spouse ( Anibal) Significant Other/Family: Local Employment Status: Employed (does bookkeeping for husbands construction business) Instrumental Activities of Daily Living (ADLs): Independent Medications Medication Management: No Issues/Barriers identified Physical Functioning/Mobility Assistive Device: none Advance Directives Advance Directives: Do you have an Advance Directive: N 05/15/22 11:13 AD On File at [facility]: N 05/15/22 11:13 Date Asked 01/25/24 01/25/24 02:53 AD Date Reviewed COLST On File at [facility] No 01/24/24 16:31 COLST Date Scanned Code Status Resuscitation Status Full Code Insurance Coverage/Financial Issues Insurance: Medicaid Care Team Visit Care Team Role Provider Type Alyssa Mathew MD Primary Care Provider [facility] STAFF PHYSICIAN InPatient Nacho Woodward Other Providers OTHER Claire Vera MD Emergency Provider [facility] STAFF PHYSICIAN Truman Botello Admit Provider NON-[facility] STAFF PHYSICIAN Attending Provider Discharge Potential Discharge Needs: PCP F/U Appt Anticipated Barriers to Discharge: None Identified Patient/Family Education Needs: Review discharge instructions, discuss Ask Me Three Transportation: Private vehicle Plan: Anticipate Bri will be discharged home with no new services when medically cleared. She will follow up with her PCP and plan of care and transport with family. will follow and continue to assess for discharge needs. PFSH All Active Problems (Updated 01/25/24 @ 01:07 by Truman Botello) TIA (transient ischemic attack) (Acute) Vertigo (Acute) Encounter for screening colonoscopy (Acute) Chronic sinusitis (Chronic) potential surgery needed Chronic pruritus (Chronic) felt to be contact dermatitis, [place] [facility] [place]) Parosmia (Acute) Chronic rhinitis (Acute) Multiple food allergies (Chronic) Continue to work with [employer] for food allergies Atopic dermatitis (Acute 08/04/17) Gastroesophageal reflux disease with esophagitis (Acute 08/04/17) s/p EGD 2021, 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; [place] [facility] [place] bx 07[place]27 IUD surveillance (Acute 09/24/13) managed at [facility] Burning sensation of mouth (Acute) chronic Mild depression (Chronic) Medical History FH: colon polyps Family history of colon cancer (09/01/15) PGM, Pat uncle Family history of ischemic heart disease before age 50 (09/24/13) Mom [place] prior to 40 Superficial thrombophlebitis Psoriasis Eczema Surgical History History of colonoscopy (~05/2023) with [facility] Colonoscopy - IV Sedation (01/15/16) Family History Mother , 60 Alcohol abuse Asthma Depression Heart disease High cholesterol Myocardial infarction Father , 49 Alcohol abuse Depression Sister Colon polyps Sister Colon polyps Hypothyroidism Daughter No problems noted. Daughter No problems noted. Maternal Grandfather No problems noted. Paternal Grandfather No problems noted. Maternal Grandmother , 88 No problems noted. Paternal Grandmother , 50 Colon cancer Uncle Colon cancer Esophageal cancer Maternal Cousin Hypothyroidism Other Anxiety Arthritis Barretts esophagus Essential hypertension Hyperlipidemia Social History Smoking/Tobacco Use Status: Never Second Hand Exposure: Yes Smoking risk assessment performed?: Yes Alcohol Intake: current Alcohol Intake frequency: holidays/special occasions only Alcohol type: hard liquor Drug use: Never Substance use type: does not use Counseling given: No Adopted: No Caregiver/Support person: No Foster care: No Household members: spouse Housing: house Number of Children: 2 number of grandchildren: 3 Communication Needs: None Education Level: high school Do you need help understanding health information?: Never 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 Pets and animals: Yes Pets and animals: dog(s) and farm animals Sexually active: Yes Do you think of yourself as: straight/heterosexual Current gender identity: female What is your relationship status?: How often do you talk on the phone with friends or family?: once per week How often do you get together with friends or relatives?: once per week How often do you attend anabaptism or jehovah's witness services?: 1-3 times per year Do you belong to any clubs or organized social groups?: no Panel score (0-1 are the most socially isolated patients): 1 Frequency: daily Janene/Tenriism: Baptism Special janene needs: No Agree to transfusion: Yes Seatbelt use: always Helmet use: Yes Helmet use: always Drive intox or ride w/intox crew car driver: No Working smoke detector in home: Yes Carbon monox detector in home: Yes Firearms in home: Yes Firearms unloaded and locked: Yes Do you feel safe at home: Yes Do you feel safe in your relationship?: Yes Would you like helpful sources: No Additional Social history: arrived soon after SDOH(Care Management) Screening Will the Patient Participate in the Screening?: Yes Do you worry about having a steady place to live?: no Problems where you live: no known problems In the past 12 months, have you had to go without electric, gas, oil or water in your home?: no Have you or anyone in your house had to go without enough food to eat?: no Has lack of transportation kept you from medical appointments or from doing things needed for daily living?: no Has anyone in your support network made you feel unsafe for any reason?: no
--- NOTE | 2024-01-25 10:01 | PT.INIE ---
Date of service: 01/25/24 Time of Service: 09:45 PT Notes Visit Reasons: Intractable Vertigo,TIA Inpatient Physical Therapy Evaluation I certify the need for these services as being medically necessary and skilled as furnished under this plan of treatment while under my care. Please sign and return within 14 days if you agree with the plan of care listed below.? Thank you for this referral! ? Referring Physician? Date Referring Doctor:? Truman Botello PT Orders: PT CONSULT for mobility Precautions: nausea, vomiting Patient Profile/Admitting Diagnosis:? The patient is a 48 yo female adm on 01/25/24 with acute and severe vertigo with associated left sided symptoms with difficulty gazing to the left. CT of the head and neck were negative teleneurology advised full evaluation for TIA treatment with initiation of Plavix and aspirin. She will have an MRI of the brain when available and echocardiogram with bubble study. Reports she had tingling in her left UE earlier in the week with neck pain and went to urgent care...they thought it was her neck. Past Medical History: TIA (transient ischemic attack) (Acute) Vertigo (Acute) Encounter for screening colonoscopy (Acute) Chronic sinusitis (Chronic) potential surgery neededChronic pruritus (Chronic) felt to be contact dermatitis, [facility] [place] Parosmia (Acute) Chronic rhinitis (Acute) Multiple food allergies (Chronic) Continue to work with [employer] for food allergiesAtopic dermatitis (Acute 08/04/17) Gastroesophageal reflux disease with esophagitis (Acute 08/04/17) s/p EGD 2021, 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; EGD at [facility] [place] bx 07/27 IUD surveillance (Acute 09/24/13) [facility] Burning sensation of mouth (Acute)chronic Mild depression (Chronic) FH: colon polyps Family history of colon cancer (09/01/15) PGM, Pat uncle Family history of ischemic heart disease before age 50 (09/24/13) Mom [place] prior to 40 Superficial thrombophlebitis Psoriasis Eczema Medications: See chart Social History/Home Situation: Lives with her spouse in [place]. 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 Drives and is indepedent and active. Subjective: Reports she forced herself to sit up for 20 mins. Objective: vomiting upon sitting on EOB. Mental Status: Patient is alert and oriented. Pain: no c/o pain Vital Signs: see nursing notes ROM/Strength: Patient nauseated to perform ROM or strength testing. Reports she has been tested frequently and does not feel any change in ROM or strength in UE or LE Sensation: Constant numbness in her left fingertips with intermittent numbness/tingling in left UE. Reports she had an incident of tingling in her left LE. Soft tissue/edema: No gross abnormalites. Bed Mobility: Supine to sit supervision Transfers: unable to secondary to vomiting. Recommended working on raising head of bed as tolerated slowly, using pillow to support head in neutral position rather than left side flexion Gait: unable Balance: using UE to maintain her balance in sitting. [facility] 6 clicks Basic Mobility Inpatient Short Form: Raw Score: 16? CMS Score: 54.16% Informed Consent/Education:? Patient instructed in purpose of PT consult and plan of care and is agreeable Assessment:? Patient is a?48 year old female adm on for vertigo and TIA.? Patient presents with decreased functional mobility, decreased balance and difficulty with ambulation. The patient would benefit from skilled inpatient services to improve these impairments to maximize function and safety. Patient is assessed as:? Low 98769?? complexity based on the following: History: non Examination: see above Presentation: Stable and uncomplicated? Evolving clinical presentation? Unstable/unpredictable ? Decision Making:? Low (0 history, 1-2 exam, stable/predictable, easy 20) Physical Therapy Goals: 2 days. Able to get in/out of bed independently Able to perform sit to/from stand independently Able to walk 200 feet independently Able to go up and down 2-3 steps with 1 rail with contact guard assist only. Independent with home exercise program Plan of Care/Treatment Plan: 1x/day, 7 days/week x 1 week. Plan of care has been reviewed with the SOCIAL CONTACT WORKER providing the service under Physical Therapy direction. Initiate Physical Therapy intervention for strengthening, bed mobility, transfers, gait, stairs, balance training, use of assistive device. DISCHARGE RECOMMENDATIONS: Informed consent Prior to the start and throughout the course of the examination and treatment, patient was made aware of the specifics and purpose of the physical assessment and treatment procedures. Appropriate draping procedures were utilized to protect modesty where applicable. Billing Charges: Treatment Units Time Duration Manual Therapy(56685) Hands-on techniques to modulate pain increase joint range of motion reduce or eliminate soft tissue swelling, inflammation, or restriction facilitate relaxation and improve contractile and non-contractile tissue extensibility ? ? Therapeutic Procedures (06381) Instruction in therapeutic exercises to develop strength and endurance, range of motion and flexibility. HEP instruction and review: Provided skilled instruction in proper exercise performance: Provided skilled manual cues to facilitate proper muscle recruitment and/or movement pattern Neurological Re-Education(80731) To improve balance, coordination, kinesthetic and proprioceptive sensations. ? ? Ultrasound(63655) To promote healing. ? ? Gait Training(55115) ? ? Therapeutic Activity(81984) Instruction in dynamic activities with one on one patient contact by the provider to improve functional performance as follows: 1 ? 10 ? Self Care Training(43245) ? ? E-Stim (Attended)(33377) ? ? Low IE(59585) 1 10 Mod IE(09412) ? ? High IE(41906) ? ? Time Coded Treatment Time ? 10 Total Treatment Time ? 20
[2024-01-25] MEDS: Normal Saline Flush 10 ML SYR IVP ×2 (11:14→21:12)
[2024-01-25] MEDS: Prochlorperazine 10 MG/2 ML VIAL IVP (11:14)
[2024-01-25] MEDS: Normal Saline 1,000 ML 200 ML IV (12:16)
[2024-01-25] MEDS: diphenhydrAMINE 50 MG/ML VIAL 25 MG IVP (13:54)
[2024-01-25] MEDS: diazePAM 2 MG TAB PO (13:55)
[2024-01-26] VITALS (7 sets, daily range): BP systolic 88–114; BP diastolic 46–66; PULSE 42–67; RESP 14–18; TEMP 36–36.9; O2SAT 96–99
[2024-01-26] MEDS: Normal Saline 1,000 ML 1000 ML IV (02:42)
[2024-01-26] MEDS: Normal Saline Flush 10 ML SYR IVP ×3 (02:42→21:12)
[2024-01-26] MEDS: Heparin 5,000 UNITS/ML VIAL 5000 UNITS SC ×3 (06:29→21:13)
--- NOTE | 2024-01-26 08:00 | DI.MRI_ITS ---
Exam(s) MR BRAIN WO EXAM: MR BRAIN WO CLINICAL HISTORY: TIA TECHNIQUE: Multiplanar multisequence MRI of the brain was performed. COMPARISON: CT CT BRAIN NECK CTA from 01/24/2024 FINDINGS: VENTRICLES AND EXTRA AXIAL SPACES: Normal in size and morphology for the patient's age. MIDLINE SHIFT: None. CEREBRAL PARENCHYMA: No focus of restricted diffusion to suggest acute infarct. No space-occupying le vance identified. HEMORRHAGE: None. BRAINSTEM/CEREBELLUM: Normal. CALVARIUM: Normal. VISUALIZED PARANASAL SINUSES/MASTOIDS:Mucous retention cysts are seen in the maxillary sinuses bilate rally. There is opacification of a few ethmoid air cells bilaterally. [place] OF OL[place]A: Normal flow void. PITUITARY GLAND: Unremarkable. OTHER FINDINGS: None. IMPRESSION: No acute intracranial process. No evidence of an acute infarct. DATA REPOSITORY:
[2024-01-26] MEDS: Clopidogrel 75 MG TAB PO (09:01)
[2024-01-26] MEDS: Pantoprazole 40 MG TABCR PO (09:01)
[2024-01-26] MEDS: Multivitamin w/Minerals TAB 1 TAB PO (09:01)
[2024-01-26] MEDS: Aspirin 81 MG CHEW PO (09:03)
[2024-01-26] MEDS: Meclizine 25 MG TAB PO ×3 (09:03→21:12)
--- NOTE | 2024-01-26 09:05 | PT.INTREAT ---
PT Notes Visit Reasons: Intractable Vertigo,TIA Physical Therapy Progress Note/Inpatient Supplemental Evaluation for Vertigo Date: 01/26/2024 Subjective: Patient complained of dizziness that is aggravated by head positioning. Feels unsteady and hesitant with short distance ambulation. Adds that she has not done anything different from her usual activities at home. Reported pain through L upper back with combined rotation of neck to L which also cause increased tingling in the left upper extremity. Per Nurse Jonny, patient has been given Meclizine and Zofran earlier in the morning. Onset: 01/24/2024Friday when she tried walking from bed Quality: Room-spinning dizziness; on and off, not as intense as when it started two days ago Duration: On and off since Friday; subsided Previous Episodes: Last Friday was the first episode Exacerbating Factors: Positional change, worse with head rotation to L. Headache: None Neck ache: Yes Nausea/Vomitting: None Hearing Loss: None Tinnitus: None Fullness in Ear: None Imbalance: Mild report Red Flags: Visual changes: None Dysphagia or Dysarthria: None Facial Weakness: None Incoordination: None Prior Level of Function: Independent with all ADLs Current Level of Function: Mildly cautious with movement, only able to walk from chair to door in the before session needed to stop as laboratory staff needed to take a blood sample form patient. In the afternoon, patient was able to walk a short distance from bedside recliner to bed for BPPV assessment Previous Treatment: Vestibular rehab previously from about 5 years ago OBJECTIVE: Posture: Good upright posturing Observation: guarded movements, with limited head motions during gait, transfers and bed mobility Mental Status: A and O x 4 Vital Signs: Closely monitored by nursing staff ROM: Cervical ROM: R head rotation about 45 degrees, L able to rotate 45 degrees but with pain in left medial scauplar area with tingling down her L upper extremity. R lateral flexion about 15 degrees, L lateral flexion more than 20 degrees. Strength: Cervical muscle strength: 3-/5 Bed Mobility/Transfers: Rolling modified independent Supine to sit modified independent Sit to supine modified independent Sit to stand modified independent Stand to sit modified independent Gait: In the morning covered about 30 feet inside room with walker with noticeable decrease in martin, very cautious about directional change. Reported mild dizziness throughout but no increase in symptom. In the afternoon walked about 15 steps from chair to edge of bed for the Torres-Hallpike maneuver. Special Tests: Rhomberg: Negative Coordination: Intact Fine Motor: Intact Visual Tracking: Decrease in smooth pursuit with return to midline from left gaze Head Thrust: Deferred as patient has been having some neck pain and L upper back pain [place]-Halpike: Negative Supine Roll Test: LEFT geotropic horizontal canal canalithiasis with L supine head roll test Balance: Static Sitting: Good Dynamic Sitting: Good Static Standing: Fair Dynamic Standing: Fair Informed Consent/Education: Patient was instructed in purpose of PT consult and plan of care. Agreeable to proceed with performance of BBQ Roll for L HCC BPPV. MANUAL THERAPY: -Gentle STM to L lev scapulae and upper/middle traps with good response after manual suboccipital release using NEURO RE-ED: BBQ roll x 2 with good response ASSESSMENT: Patient was seen for a short in-room ambulation this morning and for BPPV assessment in the afternoon with subsequent attempt at treatment. Patient presents with L horizontal canal canalithiasis of the geotropic type which responded well to the BBQ. Symptoms of cervical radiculopathy noted for which manual therapy was also attempted to address concomittant symptoms. Will plan on re-administering both Torres-Hallpike and Supine Head Roll test before patient takes in Meclizine to ensure accuracy of diagnosis. Goals: Patient will demonstrate 100% mastery of performing BBQ roll to address symptoms of L HCC BPPV and failitate return to PLOF. Plan of Care/Treatment Plan: Vestibular rehabilitation and pain management to address ongoing symtoms of dizziness, pain, and functional decline DISCHARGE RECOMMENDATIONS: [] Home with no services [] [] Home with services [specify] [X] Home with outpatient PT for re-evaluation and continued vestibular rehab for anterior canal BPPV. [] SNF for continued rehabilitation [] [] Carpet Floor Layer Apprentice Care [] [] SNF versus LTC based on ability to participate and progress [] TREATMENT CODE/TIME: 84635 x 15 minutes for 1 unit ((9:05-9:20), 60497 x 34 minutes for 2 units (15:07-15:41). Thank you for the opportunity to participate in the care of this patient. Elizabeth Agrawal PT, DPT, CLT [facility] [place], [place]
--- NOTE | 2024-01-26 09:09 | PDOC.CMPRO ---
Date of service: 01/26/24 Time of Service: 09:09 Care Management Progress Note Discharge Potential Discharge Needs: PCP F/U Appt Anticipated Barriers to Discharge: None Identified Patient/Family Education Needs: Review discharge instructions, discuss Ask Me Three Transportation: Private vehicle Plan: Anticipate Bri will be discharged home with no new services when medically cleared. She will follow up with her PCP and plan of care and transport with family. will follow and continue to assess for discharge needs. SDOH(Care Management) Screening Will the Patient Participate in the Screening?: Yes Do you worry about having a steady place to live?: no Problems where you live: no known problems In the past 12 months, have you had to go without electric, gas, oil or water in your home?: no Have you or anyone in your house had to go without enough food to eat?: no Has lack of transportation kept you from medical appointments or from doing things needed for daily living?: no Has anyone in your support network made you feel unsafe for any reason?: no
[2024-01-26 09:30] LABS: Abs Immature Grans 0.03 10^3/uL (0.0-0.06); Absolute Basophil Count 0.02 10^3/uL (0.0-0.2); Absolute Eosinophil Count 0.01 10^3/uL (0.0-0.7); Absolute Lymphocyte Count 2.17 10^3/uL (1.2-3.4); Absolute Monocyte Count 0.37 10^3/uL (0.1-0.8); Absolute Neutrophil Count 6.48 10^3/uL (1.2-6.7); Basophils % 0.2 %; Eosinophils % 0.1 %; HGB 13.6 g/dL (11.2-15.7); Immature Grans % 0.3 %; Lymphocytes % 23.9 %; MCH 30.7 pg (27.0-33.0); MCHC 33.2 % (32.0-36.0); MCV 93 fL (80-95); MPV 9.7 fL (8.0-11.0); Monocytes % 4.1 %; Neutrophils % 71.4 %; Platelet Count 244 10^3/uL (130-400); RBC 4.43 10^6/uL (3.93-5.22); RDW 12.2 % (11.7-14.6); RDW-SD 41.7 fL; WBC 9.08 10^3/uL (4.4-10.8)
[2024-01-26] MEDS: diazePAM 2 MG TAB PO (11:26)
--- NOTE | 2024-01-26 11:30 | DI.US_ITS ---
APPROVED REPORT EXAM: Comprehensive 2D, Doppler, and color-flow Echocardiogram Patient Location: In-Patient Room/Bed: [facility] Clean Up Worker: Luis Multani RDCS (AE) Indications: TIA Echo Enhancing Agent Indication: Rule out Shunt Agent(s) / Amount(s) Used: Agitated Saline 30.0 cc Comments: Contrast study was performed with 3 IV injections of 10ccs of agitated normal saline, at re st, with cough and post valsalva maneuver. Positive contrast study for right to left shunt flow. Conclusion Normal ventricular wall thickness and chamber size. Ejection fraction is 55 to 60%. Wall motion is normal Normal right ventricular size and function Both atria are normal in size There is no structural or hemodynamically significant valvular disease Right to left shunting is demonstrated with injection of agitated saline Wall motion Left Ventricle The left ventricle is normal size. The left ventricular systolic function is normal. The left ventric ular ejection fraction is within the normal range. There is normal left ventricular wall thickness. T here is normal LV segmental wall motion. There is no ventricular septal defect visualized. LVEF is 55 -60%. Right Ventricle The right ventricle is normal size. The right ventricular systolic function is normal. Atria The left atrium size is normal. The right atrium size is normal. Saline bubble contrast intravenous i njection demonstrates PFO. Aortic Valve The aortic valve is normal in structure. Aortic valve is trileaflet. There is no aortic valvular sten osis. No aortic regurgitation is present. Mitral Valve The mitral valve is normal in structure. No evidence of mitral valve stenosis. Trace to mild mitral r egurgitation. Tricuspid Valve The tricuspid valve is normal in structure. There is no tricuspid valve stenosis. Trace tricuspid reg urgitation. Unable to assess PA pressure. Pulmonic Valve The pulmonary valve is normal in structure. There is no pulmonic valvular stenosis. There is no pulmo sonu valvular regurgitation. Great Vessels The aortic root is normal in size. The ascending aorta is normal in size. Aortic arch is normal in ca liber. IVC is normal in size and collapses >50% with inspiration. Pericardium There is no pericardial effusion. 2D Dimensions IVSD d PLAX 0.80 cm F: 0.6-1.0 Ao Root d 2.50 cm F: 2.7 - 3.3 LVPW d PLAX 0.65 cm F: 0.6 - 1.0 Ao Asc Diam d 2.65 cm F: 2.3 - 3.1 LVID d PLAX 4.91 cm F: 3.8 - 5.2 LVDs 3.36 cm F: 2.2 - 3.5 LV EF Teichholz 59.6 % FS 31.74 % LV EDV (Teich) 113.6 mL LV ESV (Teich) 45.9 mL Stroke Vol Index (Teich) 42.83 M-Mode TAPSE 3.24 cm (M/F) >1.7 Auto EF LV EDV A4C 93.2 mL LV EDV A2C 88.7 mL LV EDV BP 91.9 mL LV ESV A4C 41.7 mL LV ESV A2C 35.8 mL LV ESV BP 38.6 mL LVEF(%) A4C 55.3 % LVEF(%) A2C 59.6 % LVEF(%) BP 58.0 % LV SV A4C 51.5 ml LV SV A2C 52.9 ml LV SV BP 53.2 ml LV CO A4C 2.9 L/min LV CO A2C 2.9 L/min LV CO BP 2.9 L/min HR A4C 56.08 BPM HR A2C 55.13 BPM LV EDV Index (BP) LA Volume LA Length A4C 3.3 cm LA Length A2C 4.9 cm LA Area A4C s 8.62 cm2 LA Area A2C s 11.80 cm2 LA Vol A4C A-L 18.87 mL LA Vol A2C A-L 24.01 mL LA Vol Biplane A-L 25.8 mL LA Vol/BSA A4C A-L LA Vol/BSA A2C A-L LA Vol/BSA BP A-L 16.4 mL/m2 LA Vol A4C MOD 17.1 mL LA Vol A2C MOD 22.4 mL LA Vol BP MOD 23.5 mL RA Volume RA Area A4C 13.2 cm2 RA ESV A4C (A-L) 37.4mL RA Vol/BSA A4C A-L RA Length A4C 3.9 cm RA ESV A4C (MOD) 36.0mL LV Diastology MV E' medial 0.131 (>0.07 m/s) MV E Vmax 1.10 (0.4-1.3 m/s) MV E/E' MED 8.37 (<14) MV A Vmax 0.60 (0.4-1.3 m/s) MV E' lateral 0.203 (>0.1 m/s) E/A Ratio 1.8 MV E/E' LAT 5.41 (<14) MV E' Average 0.167 m/s MV E/E'(average) 6.57 Aortic Valve AoV Vmax 1.27 m/s LVOT Vmax 1.12 m/s AoV Peak Grad 6.5 mmHg LVOT Peak Grad 5.0 mmHg AoV Area (Vmax) 2.47 cm2 LVOT VTI 0.285 m AoV VTI 0.344 m LVOT Mean Grad 2.8 mmHg AoV Mean Sergei. 0.84 m/s LVOT SV 80.14 mL AoV Mean Grad 3.3 mmHg LVOT Diam s 1.85 cm AoV Area (VTI) 2.33 cm2 AV Regurg Peak Gr. 6.49 mmHg Velocity Ratio 0.88 Mitral Valve MV DT 179 (160-240 msec) Pulmonary Valve PV Vmax 0.97 (0.5-1.5 m/s) RVOT Vmax 0.84 m/s PV Peak Grad 3.7 mmHg RVOT Peak Gr. 2.8 mmHg PV Mean Sergei 0.69 m/s RVOT VTI 0.214 m PV Mean Grad 2.1 mmHg RVOT Mean Gr. 1.4 mmHg
--- NOTE | 2024-01-26 14:21 | NUR.NOTE ---
Documentation reviewed with student KURT, Barbi Hoyos. Bri Ocampo, MSN, RNC-OB (clinical instructor)
--- NOTE | 2024-01-26 17:21 | W.PM.PROGNOT ---
Date of Service Date of service: 01/26/24 Time of Service: 17:21 Assessment and Plan Assessment and plan (1) TIA (transient ischemic attack): Start date: 01/25/24 Status: Acute Assessment and plan: Presenting with acute vertiginous symptoms which are severe and have associated left sided symptoms with difficulty gazing to the left. CT of the head and neck were negative teleneurology consult in the ED recommending for full evaluation for TIA Continue Plavix and aspirin MRI of the brain: Negative for acute findings Echocardiogram with bubble study: Positive for right to left shunt Lipid panel: total cholesterol 202, LDL 136: Will initiate High dose statin therapy Hgb A1C ordered Cardiology consult Consider tele-neurology f/u if cardiology not available Physical therapy consult ongoing (2) Vertigo: Start date: 01/25/24 Status: Acute Assessment and plan: continue meclizine 25 mg 3 times daily Continue Zofran PRN (3) On deep vein thrombosis (DVT) prophylaxis: Status: Acute Assessment and plan: Continue LMWH (4) Discharge planning issues: Status: Acute Assessment and plan: D/c home when ready f/u with cardiology Subjective Subjective Patient reports: no new complaints, feels better, tolerating liquids well, tolerating a regular diet, voiding w/o difficulty, flatus and bowel movement; denies diarrhea, blood in stool, nausea, vomiting, shortness of breath or fever Exam Narrative Exam Narrative: Constitutional The patient is lying in bed comfortable, still experiencing dizziness with mobilization but improved . HENMT: Head is atraumatic, normocephalic, no lymphadenopathy. Facial structures with normal appearance Eyes: Well aligned, intact ROM Neck: Normal ROM, no meningeal signs Neuro:alert and oriented to self, person, place, time and situation. No neurological focal deficit, PERRLA on ambient light Chest:Chest is symmetrical and normal appearance Resp: Normal respiratory pattern, speaks in full sentences, unlabored breathing, clear lung bilaterally Cardio: regular rhythm, S1, S2, no murmur, bilateral radial and dorsalis pedis pulses are positive, palpable GI: Abdomen is not distended, soft and non tender, bowel sounds are present : Negative Costovertebral angle tenderness Back/spine/Pelvis: No back tenderness, normal alignment Integumentary: No skin lesions or rash Extremities: strength 5/5 to bilateral lower and upper extremities Psych: RASS 0, congruent mood and normal affect. Objective Last Vital Signs Temp 36.5 C 01/26/24 12:09 Pulse 54 L 01/26/24 15:58 Resp 16 01/26/24 15:58 BP 114/54 L 01/26/24 15:58 Pulse Ox 97 01/26/24 15:58 Laboratory Results - last 24 hr 01/26/24 09:20 WBC 9.08 RBC 4.43 Hgb 13.6 Hct 41.0 MCV 93 D MCH 30.7 MCHC 33.2 RDW 12.2 Plt Count 244 MPV 9.7 Immature Gran % 0.3 Neutrophils % 71.4 Lymphocytes % 23.9 Monocytes % 4.1 Eosinophils % 0.1 Basophils % 0.2 Nucleated RBC % 0.0 Absolute Neutrophils 6.48 Absolute Lymphocytes 2.17 Absolute Monocytes 0.37 Absolute Eosinophils 0.01 Absolute Basophils 0.02 Time Spent with Patient Time Spent with Patient: >50 minutes Time was spent: preparing to see the patient(eg.review tests), obtaining and/or reviewing separately otained hiistory, ordering medications,tests, procedures, referring, communicating with other health account executive healthcare, indepentently interpreting results, counseling the patient and care coordination
[2024-01-26] MEDS: Atorvastatin 40 MG TAB PO (21:11)
[2024-01-26 21:37] LABS: Hemoglobin A1C 5.4 % (<5.7)
[2024-01-27 03:15] VITALS: BP 107/57; PULSE 52; RESP 18; TEMP 36; O2SAT 96
[2024-01-27] MEDS: Heparin 5,000 UNITS/ML VIAL 5000 UNITS SC ×2 (06:17→13:27)
[2024-01-27 07:24] VITALS: BP 121/67; PULSE 52; RESP 16; TEMP 36.4; O2SAT 100
[2024-01-27] MEDS: Pantoprazole 40 MG TABCR PO (07:35)
[2024-01-27] MEDS: Aspirin 81 MG CHEW PO (07:36)
[2024-01-27] MEDS: Normal Saline Flush 10 ML SYR IVP (07:36)
[2024-01-27] MEDS: Multivitamin w/Minerals TAB 1 TAB PO (07:36)
[2024-01-27] MEDS: Clopidogrel 75 MG TAB PO (07:36)
--- NOTE | 2024-01-27 08:21 | CCONE_ITS ---
Date of service: 01/27/24 Time of Service: 08:21 History of Present Illness Narrative: Patient needs to have a neurology evaluation Only after that is performed can there be some type of assessment as to whether or not potential PFO is pertinent PFSH All Active Problems (Updated 01/26/24 @ 17:29 by Aida Rivera APRN) On deep vein thrombosis (DVT) prophylaxis (Acute) Discharge planning issues (Acute) TIA (transient ischemic attack) (Acute) Vertigo (Acute) Encounter for screening colonoscopy (Acute) Chronic sinusitis (Chronic) potential surgery needed Chronic pruritus (Chronic) felt to be contact dermatitis, pending allergy testing at [facility] [place] (Chronic) Parosmia (Acute) Chronic rhinitis (Acute) Multiple food allergies (Chronic) Continue to work with [employer] for food allergies Atopic dermatitis (Acute 08/04/17) Gastroesophageal reflux disease with esophagitis (Acute 08/04/17) s/p EGD 2021, 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; EGD at [facility] negative bx 07/27 IUD surveillance (Acute 09/24/13) managed [facility] Burning sensation of mouth (Acute) chronic Mild depression (Chronic) Medical History FH: colon polyps Family history of colon cancer (09/01/15) PGM, Pat uncle Family history of ischemic heart disease before age 50 (09/24/13) Mom [place] prior to 40 Superficial thrombophlebitis Psoriasis Eczema Surgical History History of colonoscopy (~05/2023) with [facility] Colonoscopy - IV Sedation (01/15/16) Family History Mother , 60 Alcohol abuse Asthma Depression Heart disease High cholesterol Myocardial infarction Father , 49 Alcohol abuse Depression Sister Colon polyps Sister Colon polyps Hypothyroidism Daughter No problems noted. Daughter No problems noted. Maternal Grandfather No problems noted. Paternal Grandfather No problems noted. Maternal Grandmother , 88 No problems noted. Paternal Grandmother , 50 Colon cancer Uncle Colon cancer Esophageal cancer Maternal Cousin Hypothyroidism Other Anxiety Arthritis Barretts esophagus Essential hypertension Hyperlipidemia Social History Smoking/Tobacco Use Status: Never Second Hand Exposure: Yes Smoking risk assessment performed?: Yes Alcohol Intake: current Alcohol Intake frequency: holidays/special occasions only Alcohol type: hard liquor Drug use: Never Substance use type: does not use Counseling given: No Adopted: No Caregiver/Support person: No Foster care: No Household members: spouse Housing: house Number of Children: 2 number of grandchildren: 3 Communication Needs: None Education Level: high school Do you need help understanding health information?: Never 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 Pets and animals: Yes Pets and animals: dog(s) and farm animals Sexually active: Yes Do you think of yourself as: straight/heterosexual Current gender identity: female What is your relationship status?: How often do you talk on the phone with friends or family?: once per week How often do you get together with friends or relatives?: once per week How often do you attend yarsani or jewish services?: 1-3 times per year Do you belong to any clubs or organized social groups?: no Panel score (0-1 are the most socially isolated patients): 1 Frequency: daily Janene/Christianity: Congregational Special janene needs: No Agree to transfusion: Yes Seatbelt use: always Helmet use: Yes Helmet use: always Drive intox or ride w/intox driver helper: No Working smoke detector in home: Yes Carbon monox detector in home: Yes Firearms in home: Yes Firearms unloaded and locked: Yes Do you feel safe at home: Yes Do you feel safe in your relationship?: Yes Would you like helpful sources: No Additional Social history: arrived soon after Results Last Vital Signs Temp 36.4 C L 01/27/24 07:24 Pulse 52 L 01/27/24 07:24 Resp 16 01/27/24 07:24 BP 121/67 01/27/24 07:24 Pulse Ox 100 01/27/24 07:24 Labs 01/26/24 09:20 01/25/24 06:10 Labs: Laboratory Results - last 24 hr 01/26/24 01/26/24 09:20 20:40 WBC 9.08 RBC 4.43 Hgb 13.6 Hct 41.0 MCV 93 D MCH 30.7 MCHC 33.2 RDW 12.2 Plt Count 244 MPV 9.7 Immature Gran % 0.3 Neutrophils % 71.4 Lymphocytes % 23.9 Monocytes % 4.1 Eosinophils % 0.1 Basophils % 0.2 Nucleated RBC % 0.0 Absolute Neutrophils 6.48 Absolute Lymphocytes 2.17 Absolute Monocytes 0.37 Absolute Eosinophils 0.01 Absolute Basophils 0.02 Hemoglobin A1c 5.4
--- NOTE | 2024-01-27 09:25 | PT.INTREAT ---
PT Notes Visit Reasons: Intractable Vertigo,TIA Physical Therapy Inpatient Treatment Note Date: 01/27/2024 SUBJECTIVE: Still dizzy but much diminished now. Has been able to move to and from bathroom since this morning without an asstive device. Still reports pain in L upper back and neck but of less intensity. OBJECTIVE: Posture: Good upright posturing Observation: Able to move with more confidence now but still cautious Mental Status: A and O x 4 Vital Signs: Closely monitored by nursing staff Bed Mobility/Transfers: Rolling modified independent Supine to sit modified independent Sit to supine modified independent Sit to stand modified independent Stand to sit modified independent Gait: 300 feet without AD with stand by assist. No LOB. No SOb. No path deviation. Directional chnage slowed. Pauly still not at baseline. Special Tests: Torres-Halpike: Negative Supine Roll Test: LEFT geotropic horizontal canal canalithiasis with L supine head roll test Balance: Static Sitting: Good Dynamic Sitting: Good Static Standing: Fair Dynamic Standing: Fair MANUAL THERAPY: -Gentle STM to L lev scapulae and upper/middle traps with good response after manual suboccipital release using NEURO RE-ED: BBQ roll x 2 with good response ASSESSMENT: Patient presents with L horizontal canal canalithiasis of the geotropic type which responded well to the BBQ. Symptoms of cervical radiculopathy noted for which manual therapy was also attempted to address concomittant symptoms. Copy of BBQ roll technique provided to patient. Goals: Patient will demonstrate 100% mastery of performing BBQ roll to address symptoms of L HCC BPPV and failitate return to PLOF. Plan of Care/Treatment Plan: Vestibular rehabilitation and pain management to address ongoing symtoms of dizziness, pain, and functional decline DISCHARGE RECOMMENDATIONS: [] Home with no services [] [] Home with services [specify] [X] Home with outpatient PT for re-evaluation and continued vestibular rehab for L horizontal canal canalithiasis of the geotropic type [] SNF for continued rehabilitation [] [] Absence Management Consultant Care [] [] SNF versus LTC based on ability to participate and progress [] TREATMENT CODE/TIME: Session [id number] x 36 minutes for 2 units (8:35-9:11). Session 2--[id number] x 30 minutes for 2 units 99:25-9:51).
--- NOTE | 2024-01-27 09:43 | DSE_ITS ---
Date of service: 01/27/24 Time of Service: 09:43 DS: Diagnosis Discharge Diagnosis (1) TIA (transient ischemic attack): Status: Acute (2) Vertigo: Status: Acute (3) Vestibular neuronitis of left ear: Status: Acute Discharge Plan Disposition Patient Disposition: Home Condition: Improving Discharge Details Reason For Visit: Intractable Vertigo,TIA Admit Date/Time: 01/25/24 01:23 Admit Provider: Truman Botello Attending Provider: Truman Botello Primary Care Provider: Alyssa Mathew Hospital Course Hospital Course: This 58-year-old female patient with a past medical history significant for GERD, chronic pruritus, chronic sinusitis and recent visit to urgent care for neck pain where she received cyclobenzaprine presented to the ED at [facility] on 01/24/2024 with complaints of dizziness, nausea, vomiting, subjective left sided paresthesia and not feeling well for 2 days prior to presentation. On exam the ED provider did not notice any focal weakness. The patient reported taking ondansetron prior to arrival Workup in the ED included a negative CT of the head, negative neck CTA and unremarkable blood work results. The patient received meclizine, and IV fluid without improvement. A trial of dexamethasone, Benadryl and lorazepam for suspicion of peripheral vertigo was administered with improvement of symptoms but still had persisting nausea with movement. Teleneurology consult was completed with recommendation to consider central process for emergent MRI versus MRI to be completed on 01/26/2024; also recommending for echocardiogram to be completed as Friday estimated to be flexible timeframe while treating with aspirin 81 daily and Plavix load and daily Plavix pending MRI. The hospitalist was consulted and patient was admitted to the medical surgical floor for evaluation and management of vertigo, TIA, nausea, vomiting. During the stay the patient continued to receive the recommended treatment as per [facility] neurology. MRI was completed and was negative for any acute findings. Echocardiogram with bubble was completed for incidental finding of PFO, as per cardiology consult, pulm a medical neurology re-evaluation was more adequate to determine pertinence of PFO. Left ventricular ejection fraction was 55 to 60%with normal wall motion. Upon neurology follow-up with Dr. Suero, the patient most likely did not have a stroke or TIA as symptoms were persistent despite negative findings on MRI; PFO to be considered as an incidental finding. Further discussion brought about the working diagnostic of vestibular neuronitis for which the recommendation is oral prednisone. There is no further recommendations for antiplatelet medicines but will continue trial of statin medicine due to total cholesterol over 200 and LDL at 136; patient to discuss continuation with PCP. Will continue to treat patient symptomatology with as needed antiemetics and antivertigo medicine. The patient will be discharged home on a taper of prednisone which was initiated today. The patient will have to follow-up with her primary care practitioner within 7 days of discharge. The patient should not drive until evaluated by her primary care provider at her follow-up appointment. Patient advised not to use NSAIDs while getting oral prednisone. Recommendation for neurology follow-up as per primary care provider shared decision making with patient. Physical therapy recommendations are for outpatient physical therapy for vestibular rehabilitation and muscle strain of the L levator scapulae and L upper/middle traps.Physical therapy test result were significant for the following: Special Tests: Rhomberg: Negative Coordination: Intact Fine Motor: Intact Visual Tracking: Decrease in smooth pursuit with return to midline from left gaze Head Thrust: Deferred as patient has been having some neck pain and L upper back pain Torres-Halpike: Negative Supine Roll Test: LEFT geotropic horizontal canal canalithiasis with L supine head roll test Discussed with Dr. Mchugh Home Meds and New Rx's Prescriptions: New atorvastatin 40 mg Tablet 20 mg PO QPM Qty: 15 0RF meclizine 25 mg Tablet 25 mg PO TID Qty: 30 0RF ondansetron 4 mg Tablet,Disintegrating 4 mg PO Q4H PRN PRN (Reason: Nausea) Qty: 60 0RF prednisone 20 mg Tablet See Taper PO DAILY Qty: 18 0RF Taper: Prednisone 20mg taper 60 mg Daily for 4 Days and 0 Hour 40 mg Daily for 1 Day and 0 Hour 30 mg Daily for 1 Day and 0 Hour 20 mg Daily for 1 Day and 0 Hour 10 mg Daily for 9 Days and 0 Hour 10 mg Daily for 10 Days Rx Instructions: TAPER: 60 mg daily for 4 Days; 40 mg daily for 1 Day; 30 mg daily for 1 Day; 20 mg daily for 1 Day; 10 mg daily for 9 Days; 10 mg daily for 10 Days then stop Continued yjcbrghleynd-Kc-rhtg-minerals Tablet 2 tab PO HS betamethasone dipropionate 0.05 % ointment 1 applic topical BID PRN (Reason: rash) levocetirizine [Xyzal] 5 mg tablet 5 mg PO QPM PRN mometasone 50 mcg/actuation spray,non-aerosol 2 spray intranasal DAILY Qty: 17 2RF Rx Instructions: administer into each nostril pantoprazole 40 mg tablet,delayed release (DR/EC) 40 mg PO DAILY Qty: 90 1RF Discharge Instructions Instructions: Vertigo (a type of dizziness) Stand Alone Forms: Nursing Discharge Form Referrals: JONO Kay [OTHER] - ( Outpatient PT for vestibular rehab and muscle strain of the L levator scapulae and L upper/middle traps) Alyssa Mathew MD [Primary Care Provider] - 02/03/24 2:20 pm (Follow-up within 7 days of discharge, please) Activity:: No driving 'til PCP clear Equipment/Supplies:: No Equipment Needed Diet:: heart healthy Discharge Orders Discharge Orders: Discharge Order (Routine); Ordered 01/27/24 Ordered By: Aida Rivera DS: Summary Time Spent with Patient providing and/or coordinating discharge services: Greater than 30 minutes Status at Discharge Functional status at discharge: independent ambulation Overall status at discharge: patient is progressing back to baseline Mental Status: mental status grossly normal Speech and Movement: speech and movement normal Mood: congruent mood Affect: normal affect Quality:SDOH Health Related Social Needs: No Data to Display Exam Narrative Exam Narrative: Constitutional The patient is lying in bed comfortable, still experiencing dizziness with mobilization but improved . HENMT: Head is atraumatic, normocephalic, no lymphadenopathy. Facial structures with normal appearance Eyes: Well aligned, intact ROM Neck: Normal ROM, no meningeal signs Neuro:alert and oriented to self, person, place, time and situation. No neurological focal deficit, PERRLA on ambient light Chest:Chest is symmetrical and normal appearance Resp: Normal respiratory pattern, speaks in full sentences, unlabored breathing, clear lung bilaterally Cardio: regular rhythm, S1, S2, no murmur, bilateral radial and dorsalis pedis pulses are positive, palpable GI: Abdomen is not distended, soft and non tender, bowel sounds are present : Negative Costovertebral angle tenderness Back/spine/Pelvis: No back tenderness, normal alignment Integumentary: No skin lesions or rash Extremities: strength 5/5 to bilateral lower and upper extremities Psych: RASS 0, congruent mood and normal affect. Psych Mental Status: mental status grossly normal Speech and Movement: speech and movement normal Mood: congruent mood Affect: normal affect DS: Data Vitals/I&O Vitals and I&O: Vital Signs Temperature 36.4 C L 01/27/24 07:24 Temperature Source Tympanic 01/27/24 07:24 Pulse 52 L 01/27/24 07:24 Pulse Rhythm Regular 01/25/24 02:55 Pulse 51 L 01/24/24 18:31 Respiratory Rate 16 01/27/24 07:24 Respiratory Effort Normal, Non-Labored 01/25/24 02:55 Respiratory Depth Normal 01/25/24 02:55 Respiratory Pattern Normal 01/25/24 02:55 Blood Pressure 121/67 01/27/24 07:24 Blood Pressure Mean 76 01/24/24 19:39 Blood Pressure Position Supine 01/24/24 19:39 Pulse Oximetry 100 01/27/24 07:24 Oxygen Delivery Method Room Air 01/27/24 07:24 Oxygen Flow Rate 0 01/27/24 07:24 Pain Level 0 01/27/24 07:24 Comment VS after 1L NS bolus 01/26/24 03:55 Intake & Output 01/26/24 01/26/24 01/27/24 11:59 23:59 11:59 Intake Total 1760 / 2170 410 / 2170 400 / 400 Output Total 450 / 450 Balance 1310 / 1720 410 / 1720 400 / 400 Weight 62.4 kg 58 kg Intake: IV 1000 / 1010 10 / 1010 Oral 760 / 1160 400 / 1160 400 / 400 Output: Urine 450 / 450 Other: Urine Color Straw Urine Appearance Clear Urine Odor Normal Comment unable to witness void amount as patient flushed toilet before void could be seen voided in toilet Data Completed and Pending Labs on day of discharge: Labs from last 24 hours 01/26/24 20:40 Hemoglobin A1c 5.4 PFSH All Active Problems (Updated 01/27/24 @ 15:46 by Aida Rivera APRN) Vestibular neuronitis of left ear (Acute) On deep vein thrombosis (DVT) prophylaxis (Acute) Discharge planning issues (Acute) TIA (transient ischemic attack) (Acute) Vertigo (Acute) Encounter for screening colonoscopy (Acute) Chronic sinusitis (Chronic) potential surgery needed Chronic pruritus (Chronic) felt to be contact dermatitis, pending allergy testing at [facility] [place] (Chronic) Parosmia (Acute) Chronic rhinitis (Acute) Multiple food allergies (Chronic) Continue to work with [facility] for food allergies Atopic dermatitis (Acute 08/04/17) Gastroesophageal reflux disease with esophagitis (Acute 08/04/17) s/p EGD 2021, 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; EGD at [facility] negative bx 07/27 IUD surveillance (Acute 09/24/13) managed at [facility] Burning sensation of mouth (Acute) chronic Mild depression (Chronic) Medical History FH: colon polyps Family history of colon cancer (09/01/15) PGM, Pat uncle Family history of ischemic heart disease before age 50 (09/24/13) Mom [place] prior to 40 Superficial thrombophlebitis Psoriasis Eczema Surgical History History of colonoscopy (~05/2023) with [facility] Colonoscopy - IV Sedation (01/15/16) Family History Mother , 60 Alcohol abuse Asthma Depression Heart disease High cholesterol Myocardial infarction Father , 49 Alcohol abuse Depression Sister Colon polyps Sister Colon polyps Hypothyroidism Daughter No problems noted. Daughter No problems noted. Maternal Grandfather No problems noted. Paternal Grandfather No problems noted. Maternal Grandmother , 88 No problems noted. Paternal Grandmother , 50 Colon cancer Uncle Colon cancer Esophageal cancer Maternal Cousin Hypothyroidism Other Anxiety Arthritis Barretts esophagus Essential hypertension Hyperlipidemia Social History Smoking/Tobacco Use Status: Never Second Hand Exposure: Yes Smoking risk assessment performed?: Yes Alcohol Intake: current Alcohol Intake frequency: holidays/special occasions only Alcohol type: hard liquor Drug use: Never Substance use type: does not use Counseling given: No Adopted: No Caregiver/Support person: No Foster care: No Household members: spouse Housing: house Number of Children: 2 number of grandchildren: 3 Communication Needs: None Education Level: high school Do you need help understanding health information?: Never 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 Pets and animals: Yes Pets and animals: dog(s) and farm animals Sexually active: Yes Do you think of yourself as: straight/heterosexual Current gender identity: female What is your relationship status?: How often do you talk on the phone with friends or family?: once per week How often do you get together with friends or relatives?: once per week How often do you attend hinduism or presybeterian services?: 1-3 times per year Do you belong to any clubs or organized social groups?: no Panel score (0-1 are the most socially isolated patients): 1 Frequency: daily Janene/Ad[employer]: Sikhism Special janene needs: No Agree to transfusion: Yes Seatbelt use: always Helmet use: Yes Helmet use: always Drive intox or ride w/intox delivery driver/supervisor: No Working smoke detector in home: Yes Carbon monox detector in home: Yes Firearms in home: Yes Firearms unloaded and locked: Yes Do you feel safe at home: Yes Do you feel safe in your relationship?: Yes Would you like helpful sources: No Additional Social history: arrived soon after Time Spent with Patient Time Spent with Patient: 70-84 minutes4 Time was spent: preparing to see the patient(eg.review tests), obtaining and/or reviewing separately otained hiistory, ordering medications,tests, procedures, referring, communicating with other health intensive care ambulance paramedic, indepentently interpreting results, counseling the patient and care coordination
[2024-01-27] MEDS: Meclizine 25 MG TAB PO ×2 (10:02→13:27)
[2024-01-27 11:13] VITALS: BP 115/60; PULSE 54; RESP 17; TEMP 36.7; O2SAT 98
--- NOTE | 2024-01-27 13:53 | PDOC.CMDIS ---
Date of service: 01/27/24 Time of Service: 13:53 LACE Index Scoring Tool Questions: Length of Stay (in days): 2 Was the patient admitted via the E.D.?: Yes E.D. Visits: 1 Answers: Total Score: 6 Risk of Readmission: Low Risk Care Management Discharge Plan Reason for Hospitalization: vertigo, TIA - found to have a PFO Discharge Plan: Bri will be discharged home with no new services, although PT has recommended a referral to [facility] therapy in [place] to work on a sore shoulder. Bri will f/u with her PCP and have a new visit with the neurologist, and continue per her plan of care. She will transport home in a private vehicle driven by her or her daughter. Patient/Family Education Needs: Review of discharge instructions, activity, limitations and follow up plan. Discuss Ask me three. SDFL Health Related Social Needs: No Data to Display
[2024-01-27] MEDS: predniSONE 20 MG TAB 60 MG PO (14:40)
== END 2024-01-27 16:51 | disposition home or self-care (01) ==
LOC: ER 01-25 00:41 → MS 01-25 02:53
PROVIDERS: Emergency Medicine; Family Medicine; Nurse Practitioner Acute Care; Admitting Provider Family Medicine; Emergency Provider Student in an Organized Health Care Education/Training Program; PCP Family Medicine; Visit Provider Family Medicine
DX: G45.9 Transient cerebral ischemic attack, unspecified (principal); H81.22 Vestibular neuronitis, left ear; Z79.899 Other long term (current) drug therapy; J32.9 Chronic sinusitis, unspecified; L29.89 Other pruritus; R23.2 Flushing; K21.00 Gastro-esophageal reflux disease with esophagitis, without bleeding; F32.A Depression, unspecified; R20.2 Paresthesia of skin; R11.0 Nausea
CPT/HCPCS: 00123; 36415; 36416; 70496; 70498; 80053; 80307; 82550; 82962; 83690; 85027; 87637; 93005; 96361; 96372; 96374; 96375; 96376; 97112; 97161; 97530; 99285; 70551; 71045; 80320; 80329; 81003; 81015; 82140; 83036; 83735; 83880; 84443; 84484; 85025; 85610; 85730; 93010; 93306; 99232; 99233; 99239; G0378; J0780; J1100; J1200; J1644; J2060; J2405; J3490; J7512

== ENCOUNTER 2024-03-22 01:28 | Outpatient (CLI) | payer MEDICAID, SELFPAY ==
--- NOTE | 2024-03-22 08:45 | DI.MAMMO_ITS ---
Exam(s) MAMMO SCREENING EXAM: MAMMO SCREENING CLINICAL HISTORY: screening,z12.39 TECHNIQUE: Bilateral full field digital CC and MLO mammographic images were obtained with 3D tomosyn thesis and utilizing computer aided detection (CAD). COMPARISON: Available for comparison. FINDINGS: Masses/Architectural Distortion: None seen. Microcalcifications: No suspicious pleomorphic-type are seen. There are stable scattered calcificatio ns in both breasts. Skin Thickening/Nipple Retraction: None. IMPRESSION: 1. No significant interval change with no specific features of malignancy noted. 2. Unless there is more urgent need, screening mammography is recommended, as per [employer] guidelines. BI-RADS Category 2 - Benign Findings Breast Density - Category C - Heterogeneously dense Breast density category C or D implies that the patient has dense breast tissue. Dense breast tissue is very common and is not abnormal but dense breast tissue can make it harder to find cancer on a ma mmogram. Also, dense breast tissue may increase their breast cancer risk. This information about the result of the mammogram report was provided to the patient to raise their awareness. Use this report when you speak with the patient about their risks for breast cancer, which includes their family hist ory. At that time, you may recommend for more screening tests (Ultrasound or MRI) as they might be us eful based on their risk. A negative radiographic report should not delay biopsy if a dominant or clinically suspicious mass is present. Up to ten percent of cancers are not identified on mammography. A negative report may reinforce clinical impression. Adenosis and dense breasts may obscure an underlying neoplasm. False positive reports average 6 to 10%. Patient will receive a letter notifying them of these results.
== END 2024-03-22 01:48 ==
PROVIDERS: PCP Family Medicine; Visit Provider Family Medicine
DX: Z12.31 Encounter for screening mammogram for malignant neoplasm of breast (principal); R92.313 Mammographic fatty tissue density, bilateral breasts; D24.1 Benign neoplasm of right breast; D24.2 Benign neoplasm of left breast
CPT/HCPCS: 77063; 77067

== ENCOUNTER 2024-04-02 00:43 | Outpatient (CLI) | payer MEDICAID, SELFPAY ==
--- NOTE | 2024-04-02 | DI.MRI_ITS ---
Exam(s) MR IAC BRAIN WO/W EXAM: MR IAC BRAIN WO/W CLINICAL HISTORY: Acute onset vertigo/vestibular neuritis, dizziness, R42; hearing changes. TECHNIQUE: Multiplanar multisequence MRI of the brain and internal auditory canals was performed. CONTRAST MATERIAL: IV Contrast: 11 mL of Dotarem contrast administered. COMPARISON: No exams were available for comparison FINDINGS: VENTRICLES AND EXTRA AXIAL SPACES: Normal in size and morphology for the patient's age. HEMORRHAGE: None. CEREBRAL PARENCHYMA: No focus of restricted diffusion to suggest acute infarct. No space-occupying le vance identified.No abnormal high signal lesions in the white matter. MIDLINE SHIFT: None. BRAINSTEM/CEREBELLUM: Normal. CALVARIUM: Normal. ENHANCEMENT: No suspicious enhancement identified. VISUALIZED PARANASAL SINUSES: Mucosal thickening throughout. Large mucous retention cyst again noted in left maxillary sinus. Small retention cyst in the right maxillary sinus. Opacification of multi ple ethmoid sinuses. MASTOIDS: Clear. ORBITS: Unremarkable. IAC/CP ANGLE: The internal auditory canals are within normal limits. The cerebellar pontine angles ar e unremarkable. No enhancing lesions are seen. Visualized portions of the cranial nerves appear withi n normal limits. IMPRESSION: Unremarkable MRI of the brain and internal auditory canals. DATA REPOSITORY:
[2024-04-02] MEDS: Gadoterate meglumine 20 ML SYRINGE IVP (08:37)
[2024-04-02] MEDS: Normal Saline Flush 10 ML SYR IJ (08:38)
== END 2024-04-02 01:03 ==
LOC: DI 00:44
PROVIDERS: PCP Family Medicine; Visit Provider Physician Assistant
DX: R42 Dizziness and giddiness (principal)
CPT/HCPCS: 70553

== ENCOUNTER 2024-08-10 00:17 | Outpatient (CLI) | payer MEDICAID, SELFPAY ==
--- NOTE | 2024-08-10 | DI.CT_ITS ---
Exam(s) CT SINUS WO EXAM: CT SINUS WO CLINICAL HISTORY: CHRONIC PANSINUSITIS J32.4 NASAL OBSTRUCTION J34.89. TECHNIQUE: Imaging Protocol: Axial computed tomography images with coronal and sagittal reformatted images were created and reviewed. No IV Contrast COMPARISON: CT CT BRAIN NECK CTA from 01/24/2024 FINDINGS: MAXILLARY SINUSES: There is mucosal thickening both maxillary sinuses as well as post inflammatory retention cysts. The re is a small fluid level in the right maxillary sinus noted. There are defects in the medial thakur of both maxillary sinuses at the level of the ostiomeatal units; I suspect that these are postsurgica l. OSTIOMEATAL UNITS: Appear to have been resected bilaterally. ETHMOIDAL AIR CELLS: There is partial opacification of ethmoidal air cells bilaterally. SPHENOID SINUSES: Well aerated. No mucosal thickening nor fluid levels. FRONTAL SINUSES: Well aerated. No mucosal thickening nor fluid levels. NASAL SEPTUM AND TURBINATES:Nasal septum is midline with no evidence of significant nasal septal spur . There is symmetrical aeration-cordell bullosa of both middle turbinates. IMPRESSION: 1. There appear to be surgical defect the medial thakur of both maxillary sinuses consistent with res ection of the bilateral ostiomeatal units. 2. There is mucosal thickening and post inflammatory retention cysts in both maxillary sinuses, max lar to what was incidentally noted on CT a study of 01/24/2024. There is also a small fluid level in the right maxillary sinus indicating an element of acute on chronic sinusitis. RADIATION DOSE DELIVERED: 90.28mGy.cm Total DLP DATA REPOSITORY: All CT scans at this facility are submitted to the National Radiology Data Registry (NRDR) Dose Index Registry (DIR) with the [employer] (ACR). RADIATION OPTIMIZATION: All CT scans at this facility use at least one of these dose optimization te chniques: automated exposure control; mA and/or kV adjustment per patient size (includes targeted exa ms where dose is matched to clinical indication); or iterative reconstruction.
== END 2024-08-10 00:37 ==
LOC: DI 00:18
PROVIDERS: PCP Family Medicine; Visit Provider Otolaryngology
DX: J32.4 Chronic pansinusitis (principal); J34.89 Other specified disorders of nose and nasal sinuses
CPT/HCPCS: 70486

== ENCOUNTER 2024-08-25 02:52 | Outpatient (CLI) | payer MEDICAID, SELFPAY ==
[2024-08-25 08:20] LABS: Calculated LDL 148 mg/dL (<100); Cholesterol 222 mg/dL (<200); HDL Cholesterol 58 mg/dL (>or=50); Triglyceride 83 mg/dL (<150)
== END 2024-08-25 02:53 | disposition home or self-care (01) ==
PROVIDERS: PCP Family Medicine; Visit Provider Family Medicine
DX: Z13.6 Encounter for screening for cardiovascular disorders (principal); H81.22 Vestibular neuronitis, left ear
CPT/HCPCS: 36415; 80061

== ENCOUNTER → 2025-03-23 00:02 | Outpatient (CLI) | payer MEDICAID, SELFPAY ==
--- NOTE | 2025-03-23 06:15 | DI.MAMMO_ITS ---
Exam(s) MAMMO SCREENING EXAM: MAMMO SCREENING 2015 through 2023 CLINICAL HISTORY: screening,z12.39 TECHNIQUE: Mammograms were interpreted according to the usual protocol including computer analysis with CAD system, tomosynthesis and C-view imaging. COMPARISON: 2015 through 2023 FINDINGS: The breasts are composed of heterogeneously dense fibroglandular densities, Breast Density category C. No suspicious masses or suspicious microcalcifications are seen. Bilateral benign calcifications are again noted. No skin thickening or abnormal axillary lymph nodes are seen. There has been no significant change from prior exams. IMPRESSION: BI-RADS Category 2 - Negative Mammogram with benign findings. Yearly screening mammography is recommended. Breast Density: Category C - The breasts are heterogeneously dense, which may obscure small masses. Breast density Category C or D implies that the patient has dense breast tissue. Dense breast tissue can make it harder to find cancer on a mammogram. Dense breast tissue is also associated with an increased risk of breast cancer. This information about the result of the mammogram report was provided to the patient to raise their awareness. Use this report when you speak with the patient about their risks for breast cancer, which includes their family history. At that time, you may recommend additional screening tests (Ultrasound or MRI) as these tests may add significant information. A negative radiographic report should not delay biopsy if a dominant or clinically suspicious mass is present. Up to ten percent of cancers are not identified on mammography. A negative report may reinforce clinical impression. Adenosis and dense breasts may obscure an underlying neoplasm. False positive reports average 6 to 10%.
== END ==
LOC: DI 00:02
PROVIDERS: PCP Family Medicine; Visit Provider Family Medicine
DX: Z12.31 Encounter for screening mammogram for malignant neoplasm of breast (principal); R92.323 Mammographic fibroglandular density, bilateral breasts; R92.333 Mammographic heterogeneous density, bilateral breasts
CPT/HCPCS: 77063; 77067

== ENCOUNTER 2025-03-23 09:30 | Outpatient (REF) | payer MEDICAID, SELFPAY ==
--- NOTE | 2025-03-23 08:45 | PAPFT_PTH ---
PATIENT: Bri Conte LOC: [facility] U#:[id number] AGE/SX: 49/F ROOM: RE03/23/[address]: Yulissa Nguyen NP : 1975 BED: DIS: 03/23/2025 SPEC #: [id number] RECD: 03/23/25 13:02 STATUS: GABRIEL STREETER #: [id number] DIPESH: 03/23/25 08:[address]: Yulissa Nguyen NP DEPT: [facility] Cytology RECD BY: Tammie Martinez ENTERED: 03/23/25 13:02 SP TYPE: PAPFT OTHR DR: Alyssa Mathew Tissues: 1 - CX/ENDOCX FOR PAP SMEARS Procedures: PAP THIN PREP/[facility] Screening HPV DNA PROBE Comments: [id number] (HPV 16 & 18/45)
== END 2025-03-23 09:31 | disposition home or self-care (01) ==
LOC: LBN 09:30
PROVIDERS: PCP Family Medicine; Visit Provider Nurse Practitioner Women's Health
DX: Z12.4 Encounter for screening for malignant neoplasm of cervix (principal)
CPT/HCPCS: 88142; 87624